=== PATIENT | male | born 1955 | race Caucasian/White ===

== ENCOUNTER 2024-07-10 03:29 | Inpatient (IN) | payer MEDICARE ==
[~2024-07-10] VITALS: Ht 185.4 cm; Wt 66.0 kg
[2024-07-10] VITALS (18 sets, daily range): BP systolic 126–168; BP diastolic 73–100
[2024-07-10] MEDS ORDERED: ALBU90OI INH (03:40)
[2024-07-10 03:54] LABS: BASOPHILS ABSOLUTE AUTO 0.02 K/mm3 (0.00-0.23); BASOPHILS PERCENT AUTO 0 % (0-2); EOSINOPHILS ABSOLUTE AUTO 0.01 K/mm3 (0.00-0.68); EOSINOPHILS PERCENT AUTO 0 % (0-6); Hematocrit 31.5 % (37.0-53.0); Hemoglobin 11.8 g/dL (13.5-17.5); IMMATURE GRAN ABSOLUTE AUTO 0.05 K/mm3 (0.00-0.10); IMMATURE GRAN PERCENT AUTO 1 % (0-1); LYMPHOCYTES ABSOLUTE AUTO 0.52 K/mm3 (0.84-5.20); LYMPHOCYTES PERCENT AUTO 8 % (21-46); MONOCYTES ABSOLUTE AUTO 0.73 K/mm3 (0.16-1.47); MONOCYTES PERCENT AUTO 11 % (4-13); Mean Corpuscular HGB 38.7 pg (26.0-34.0); Mean Corpuscular HGB Conc 37.5 g/dL (31.5-36.5); Mean Corpuscular Volume 103 fL (80-100); Mean Platelet Volume 9.6 fL (9.1-12.4); NEUTROPHILS PERCENT AUTO 80 % (41-73); Platelet Count 103 K/mm3 (150-400); RDW Coefficient Variation 12.7 % (11.7-14.2); RDW Standard Deviation 47.6 fL (35.1-46.3); Red Blood Cell Count 3.05 M/mm3 (4.30-5.90); White Blood Cell Count 6.73 K/mm3 (4.00-11.30)
[2024-07-10 04:00] LABS: Albumin, Blood 3.8 g/dL (3.4-5.0); Albumin/Globulin Ratio 1.2 (0.8-1.8); Bilirubin, Total 0.7 mg/dL (0.1-1.0); Bun/Creatinine Ratio 8.4 (12.0-20.0); Calcium, Blood 8.4 mg/dL (8.5-10.1); Creatinine, Blood 0.83 mg/dL (0.60-1.20); Globulin, Blood 3.3 g/dL (2.2-4.0); Potassium, Blood 3.4 mmol/L (3.5-5.5); Total Protein, Blood 7.1 g/dL (6.4-8.2)
[2024-07-10] MEDS ORDERED: FentaNYL Citrate 50 MCG/ML 2 ML Injection IV ONE ×2 (04:15→06:20)
[2024-07-10 04:26] LABS: Magnesium, Blood 1.5 mg/dL (1.6-2.4)
[2024-07-10 04:48] LABS: Thyroid Stimulating Hormone 1.6 uIU/mL (0.360-4.800)
[2024-07-10] MEDS ORDERED: Potassium Chloride 20 MEQ TabCR PO ONE (05:05)
[2024-07-10] MEDS ORDERED: Mag Sulfate 1 GM/D5% 100ML 100 ML IV ONE (05:05)
[2024-07-10] MEDS ORDERED: NS 1,000 ML IV SCH (05:35)
[2024-07-10] MEDS ORDERED: HYDROmorphone HCl/Pf 1MG SYR IV ONE (07:40)
[2024-07-10] MEDS ORDERED: Metoprolol Tartrate 25 MG Tab PO PRN (08:20)
[2024-07-10] MEDS ORDERED: TraMADol HCl 50 MG Tab PO PRN (08:20)
[2024-07-10] MEDS ORDERED: FLU VACC TS2024-25(6MOS UP)/PF 45 MCG/0.5 ML SYRINGE IM SCH (08:20)
[2024-07-10] MEDS ORDERED: NS KCl 20mEq 1,000 ML IV SCH (08:20)
[2024-07-10] MEDS ORDERED: CeFAZolin Sodium 2,000 MG in NS 100 ML IV SCH ×2 (08:20→17:30)
[2024-07-10] MEDS ORDERED: Tranexamic Acid 100 ML IV ONE ×2 (08:20→09:43)
[2024-07-10] MEDS ORDERED: FentaNYL Citrate 50 MCG/ML 2 ML Injection IV PRN (08:25)
[2024-07-10] MEDS ORDERED: Acetaminophen 325 MG TABLET PO PRN (08:25)
[2024-07-10] MEDS ORDERED: Docusate Sodium 100 MG Cap PO SCH (09:00)
[2024-07-10] MEDS ORDERED: Sennosides 8.6 MG Tab PO SCH (09:00)
[2024-07-10] MEDS ORDERED: Lactated Ringer's 1,000 ML IV ONE (09:01)
[2024-07-10] MEDS ORDERED: propofoL 20 ML IV ONE (09:12)
[2024-07-10] MEDS ORDERED: FentaNYL Citrate 50 MCG/ML 2 ML Injection ONE ×2 (09:13→10:07)
--- NOTE | 2024-07-10 09:13 | NUR ---
PT IN PACU FOR PRE-OP, DR PERSON HAS CONSULTED PT, DR CHATMAN HAS CONSULTED AND SIGNED CONSENT WITH PT
[2024-07-10] MEDS ORDERED: SuccINYLCHOLINE Chloride 100 MG/5 ML 5MLSYR ONE (09:15)
[2024-07-10] MEDS ORDERED: Lidocaine HCl 1% 30 ML SDV ONE (09:17)
[2024-07-10] MEDS ORDERED: Ondansetron HCl 2 MG / ML 2ML Vial ONE (09:42)
[2024-07-10] MEDS ORDERED: Dexamethasone Sod Phos 10 MG/ML 1ML VIAL ONE (09:42)
[2024-07-10] MEDS ORDERED: CeFAZolin Sodium 1000 mg Vial ONE (09:43)
[2024-07-10] MEDS ORDERED: ePHEDrine Sulfate 50 MG/ML 1ML Injection ONE (09:56)
[2024-07-10 12:06] LABS: Bun/Creatinine Ratio 7.7 (12.0-20.0); Calcium, Blood 7.9 mg/dL (8.5-10.1); Creatinine, Blood 0.78 mg/dL (0.60-1.20); Potassium, Blood 3.6 mmol/L (3.5-5.5)
[2024-07-10] MEDS ORDERED: Albuterol 2.5 MG/3 ML VIAL INH PRN (16:20)
--- NOTE | 2024-07-10 17:38 | NUR ---
PATIENT IS ALERT AND ORIENTED AND COOPERATIVE WITH CARE. ON RA. TELEMETRY IN PLACE WITH A RATE AND RHYTHM OF ST 110 BPM. PATIENT HAS NOT BEEN OOB TODAY. PAIN MANAGED PER EMAR. TOLERATING HIS DIET. REPORTS NO HOME MEDS OR PCP. AQUACEL ON LEFT HIP IS CDI, SOME BRUISING IS PEEKING THROUGH THE BOTTOM OF THE AQUACEL. SCATTERED BRUISING. ABRASION ON LEFT ELBOW AND LEFT KNEE FROM FALL AT HOME. WILL CONTINUE TO MONITOR.
--- NOTE | 2024-07-11 04:29 | NUR ---
SHIFT SUMMARY POD 1 LEFT HIP PINNING. AQUACEL CDI. PAIN MANAGED PER EMAR AND ICE THERAPY. BRUNO PO INTAKE. IVF/ABX INFUSED PER ORDERS. IS VOIDING IND IN URINAL. PT DECLINED POST- OP AMBULATION, PLAN TO WORK WITH THERAPY TODAY. WILL GIVE REPORT TO ONCOMING RN.
[2024-07-11 04:57] LABS: Hematocrit 23.8 % (37.0-53.0); Hemoglobin 8.6 g/dL (13.5-17.5); Mean Corpuscular HGB 38.7 pg (26.0-34.0); Mean Corpuscular HGB Conc 36.1 g/dL (31.5-36.5); Mean Corpuscular Volume 107 fL (80-100); Mean Platelet Volume 10.1 fL (9.1-12.4); Platelet Count 84 K/mm3 (150-400); RDW Standard Deviation 51.2 fL (35.1-46.3); Red Blood Cell Count 2.22 M/mm3 (4.30-5.90); White Blood Cell Count 7.44 K/mm3 (4.00-11.30)
[2024-07-11 05:15] LABS: Bun/Creatinine Ratio 12.9 (12.0-20.0); Calcium, Blood 7.5 mg/dL (8.5-10.1); Creatinine, Blood 0.7 mg/dL (0.60-1.20); Potassium, Blood 4.2 mmol/L (3.5-5.5)
[2024-07-11 07:13] VITALS: BP 121/95
[2024-07-11] MEDS ORDERED: Aspirin 81 MG Chew PO SCH (09:00)
[2024-07-11] MEDS ORDERED: Enoxaparin 40 MG/0.4 ML SYR SC SCH (09:00)
[2024-07-11 12:53] VITALS: BP 138/81
[2024-07-11] MEDS ORDERED: HYDROcodone 5-APAP 325 TAB PO PRN (13:10)
[2024-07-11 14:55] VITALS: BP 136/63
[2024-07-11 19:12] VITALS: BP 143/66
--- NOTE | 2024-07-11 19:38 | NUR ---
SHIFT SUMMARY PT IS A/OX4, 1 ASST W/ FWW AND GB, HAS AMBULATED TO BR AND VOIDED MULTIPLE TIMES TODAY. PAIN IS MANAGABLE W/ PAIN MEDS PER EMAR. TOLERATING REG DIET AND FLUIDS, SALINE LOCKED. VSS. PT RECOMMENDING SNF BUT PT IS OPTING TO D/C HOME, PT CONSULTED W/ CARE MANAGEMENT TODAY FOR D/C PLANNING. PT RESTING IN ROOM W/ CALL LIGHT IN REACH, REPORT TO DENISE NAJERA.
[2024-07-11 23:26] VITALS: BP 148/78
[2024-07-12] VITALS (16 sets, daily range): BP systolic 107–138; BP diastolic 55–91
[2024-07-12 04:32] LABS: Hematocrit 21.8 % (37.0-53.0); Hemoglobin 7.8 g/dL (13.5-17.5); Mean Corpuscular HGB 38.4 pg (26.0-34.0); Mean Corpuscular HGB Conc 35.8 g/dL (31.5-36.5); Mean Corpuscular Volume 107 fL (80-100); Mean Platelet Volume 10.3 fL (9.1-12.4); Platelet Count 79 K/mm3 (150-400); RDW Coefficient Variation 12.9 % (11.7-14.2); RDW Standard Deviation 50.7 fL (35.1-46.3); Red Blood Cell Count 2.03 M/mm3 (4.30-5.90); White Blood Cell Count 4.89 K/mm3 (4.00-11.30)
[2024-07-12 05:03] LABS: Bun/Creatinine Ratio 9.5 (12.0-20.0); Calcium, Blood 7.5 mg/dL (8.5-10.1); Creatinine, Blood 0.74 mg/dL (0.60-1.20); Potassium, Blood 3.8 mmol/L (3.5-5.5)
--- NOTE | 2024-07-12 05:19 | NUR ---
SHIFT SUMMARY POD 2 LEFT HIP PINNING. AQUACEL TO LEFT HIP CDI. ICE THERAPY APPLIED BRUNO. PAIN MANAGED PER EMAR AND REPOSITIONING. BRUNO PO INTAKE, DENIES N/V. IV REPLACED. PER BINDING MACHINE OPERATOR, HR SR AT 83 WITH PAC'S. PT PLEASANT AND COOPERATIVE WITH CARE. PLAN TO WORK WITH THERAPY AND POSSIBLE D/C WHEN ABLE WITH H/H. WILL GIVE REPORT TO ONCOMING RN
--- NOTE | 2024-07-12 11:45 | NUR ---
UPDATE PT IS TACHYCARDIC UP TO 150'S WHILE AMBULATING, HR RETURNS TO SINUS/SINUS TACH 90-110 AT REST. PT DENIES CHEST PAIN/SOB. DR. LANDA NOTIFIED W/ NO ORDERS RECIEVED.
--- NOTE | 2024-07-12 14:50 | NUR ---
CHANGE IN STATUS PT IS HAVING SUDDEN EXCRUTIATING PAIN TO L HIP. INCREASE IN SWELLING NOTED TO L HIP/THIGH, PT REPORTS INCREASE IN PAIN WHEN PRESSURE IS APPLIED TO LEG. CAP REFILL TO L FOOT 3 SECS, PT ABLE TO WIGGLE TOES. NOTIFIED DR. LANDA, ORDER TO GIVE SECOND TAB OF NORCO NOW AND CONTACT ORTHO. ICE APPLIED TO L HIP W/ NO RELIEF. DR. LEARY CONTACTED AT 1500, ORDER FOR STAT XR RECIEVED.
--- NOTE | 2024-07-12 15:43 | NUR ---
1524 - DR. LEARY CONSULTED AGAIN PT HAS NOT REPORTED ANY RELIEF IN PAIN. ORDER FOR STAT H&H RECIEVED. VSS.
[2024-07-12 15:52] LABS: Hematocrit 22.4 % (37.0-53.0); Hemoglobin 8.1 g/dL (13.5-17.5)
[2024-07-12] MEDS ORDERED: HYDROmorphone HCl/Pf 1MG SYR IV ONE (16:10)
[2024-07-12] MEDS ORDERED: FentaNYL Citrate 50 MCG/ML 2 ML Injection ONE (18:48)
[2024-07-12] MEDS ORDERED: propofoL 20 ML IV ONE (18:48)
[2024-07-12] MEDS ORDERED: Lidocaine HCl 2% 20 ML MDV ONE (18:49)
[2024-07-12] MEDS ORDERED: Rocuronium Bromide 10 MG/ML 5ML Injection IV ONE (18:51)
--- NOTE | 2024-07-12 19:12 | NUR ---
update PT TO SURGERY WITH ANESTHESIOLOGIST AND OFFICE MACHINE SERVICER APPRENTICE AT THIS TIME.
[2024-07-12] MEDS ORDERED: Ondansetron HCl 2 MG / ML 2ML Vial IV PRN (19:25)
[2024-07-12] MEDS ORDERED: Albuterol 2.5 MG/3 ML VIAL INH PRN (19:25)
[2024-07-12] MEDS ORDERED: Labetalol HCL 5 MG/ML 4ML Injection (Single Dose) IV PRN (19:25)
[2024-07-12] MEDS ORDERED: HYDROmorphone HCl/Pf 1MG SYR IV PRN ×2 (19:25)
[2024-07-12] MEDS ORDERED: FentaNYL Citrate 50 MCG/ML 2 ML Injection IV PRN ×2 (19:25→19:30)
--- NOTE | 2024-07-12 19:25 | NUR ---
SHIFT SUMMARY SEE PREVIOUS NOTES. PT WAS REPORTING A DECREASE IN PAIN AFTER ANGIOGRAM, PAIN NOW /. PT NPO PER DR. LEARY, ONLY TOOK PAIN MEDS W/ SMALL SIP OF WATER. SWELLING PRESENT TO L THIGH AREA FROM KNEE TO GROIN. CAP REFILL 3 SECS IN L TOES, PT ABLE TO WIGGLE TOES BUT REPORTS PAIN W/ ANY MOVEMENT. DR. LEARY RETURNED TO BEDSIDE AFTER ANGIOGRAM AND TOOK PT TO OR FOR SURGERY SHORTLY AFTER FOR BLEEDING IN L THIGH. REPORT TO CANDACE NAJERA.
[2024-07-12] MEDS ORDERED: Phenylephrine HCl 100 MCG/ML-NS 10MLSYR (1MG/10ML) ONE (19:33)
[2024-07-12] MEDS ORDERED: Sugammadex Sodium 200 MG/2ML SDV (100 MG/ML) ONE (20:12)
[2024-07-13] VITALS (17 sets, daily range): BP systolic 113–148; BP diastolic 59–88
[2024-07-13] MEDS ORDERED: CeFAZolin Sodium 1,000 MG in NS 50 ML IV SCH (04:00)
--- NOTE | 2024-07-13 05:15 | NUR ---
PROVIDER NOTIFIED HOSPITALIST NOTIFIED MORNING LABS NOT ORDERED. NEW LAB ORDERS OBTAINED FOR AM.
[2024-07-13 05:41] LABS: BASOPHILS PERCENT AUTO 0 % (0-2); EOSINOPHILS PERCENT AUTO 0 % (0-6); Hemoglobin 6.3 g/dL (13.5-17.5); IMMATURE GRAN ABSOLUTE AUTO 0.01 K/mm3 (0.00-0.10); IMMATURE GRAN PERCENT AUTO 0 % (0-1); LYMPHOCYTES ABSOLUTE AUTO 0.27 K/mm3 (0.84-5.20); LYMPHOCYTES PERCENT AUTO 9 % (21-46); MONOCYTES ABSOLUTE AUTO 0.27 K/mm3 (0.16-1.47); MONOCYTES PERCENT AUTO 9 % (4-13); Mean Corpuscular HGB 39.1 pg (26.0-34.0); Mean Corpuscular HGB Conc 36.2 g/dL (31.5-36.5); Mean Corpuscular Volume 108 fL (80-100); Mean Platelet Volume 10.4 fL (9.1-12.4); NEUTROPHILS ABSOLUTE AUTO 2.53 K/mm3 (1.96-9.15); NEUTROPHILS PERCENT AUTO 82 % (41-73); Platelet Count 88 K/mm3 (150-400); RDW Standard Deviation 50.8 fL (35.1-46.3); Red Blood Cell Count 1.61 M/mm3 (4.30-5.90); White Blood Cell Count 3.08 K/mm3 (4.00-11.30)
[2024-07-13 05:47] LABS: Hematocrit 17.4 % (37.0-53.0)
[2024-07-13 05:58] LABS: Bun/Creatinine Ratio 7.8 (12.0-20.0); Calcium, Blood 7.6 mg/dL (8.5-10.1); Creatinine, Blood 0.77 mg/dL (0.60-1.20)
--- NOTE | 2024-07-13 06:05 | NUR ---
CRITICAL LAB VALUE LAB NOTIFIED THIS RN OF CRITICAL HCT VALUE OF 17.4. RN THEN NOTIFIED HOSPITALIST OF H/H AT 6.3/17.4. ORDER FOR ONE UNIT OF PRBC'S OBTAINED AT THIS TIME. WILL ADMINISTER ORDERED. PAPER WOOD CUTTER AWARE.
--- NOTE | 2024-07-13 06:18 | NUR ---
PATIENT TO OR AT CHANGE OF SHIFT FOR I&D OF HEMATOMA LT HIP. FROM PACU BACK TO HIS ROOM 212 AT 2115. AWAKE A&OX4. TALKING. DENIES PAIN T/O NOC WHEN ASKED SEVERAL TIMES. WOUND VAC TO LT HIP WITH TEGADERM AND LARGE MANPREET WRAP NOTED TO LLE. WOUND VAC WITH MARCIAL RED DRAINAGE APPROX 180 THIS SHIFT. SCHEDULED MEDS GIVEN ORDERED PER EMAR. PT TO BE NON-WEIGHT BEARING LLE TODAY 07/13/24. USES URINAL INDEPENDENTLY WITH ADEQUATE URINE OUTPUT. TELE IN PLACE SINUS TACH RATE 106 PER PCU TECH. WILL GIVE REPORT TO ONCOMING RN TAKING PT.
[2024-07-13] MEDS ORDERED: NS 250 ML IV PRN (07:55)
--- NOTE | 2024-07-13 19:15 | NUR ---
SHIFT SUMMARY AOX4, WOUND VAC IN PLACE COMPRESSED AND INTACT, DRNG MARCIAL RED BLOOD, ABOUT 200ML OUTPUT THIS SHIFT. 2 UNITS PRBC TRANSFUSED TODAY. VITALS STABLE. PATIENT IS 1 ASSIST TO BSC. WORKS WITH PT ON TRANSFERS.DENIES N/T, DENIES PAIN MEDICATION NEEDS. TOLERATING PO INTAKE AND HAVING LOOSE STOOLS TODAY. REPORT TO MEDICAL INFORMATION SPECIALIST RN CALL LIGHT IN REACH.
[2024-07-13 19:32] LABS: Hematocrit 26.1 % (37.0-53.0); Hemoglobin 9.5 g/dL (13.5-17.5)
[2024-07-13 19:48] LABS: International Normalized Ratio 1.2; Prothrombin Time Results 12.7 Sec (9.7-11.5)
--- NOTE | 2024-07-13 20:02 | NUR ---
LABS: PT REPEAT CBC REVIEWED W/HOSPITALIST. CLARIFIED CURRENT ORDER FOR PLATELETS, PER HOSPITALIST LILIA ROBERTS NOT GIVE PLATELETS. PRIMARY RN UPDATED.
[2024-07-14] VITALS (10 sets, daily range): BP systolic 123–153; BP diastolic 68–87
[2024-07-14 05:13] LABS: BASOPHILS ABSOLUTE AUTO 0.01 K/mm3 (0.00-0.23); BASOPHILS PERCENT AUTO 0 % (0-2); EOSINOPHILS ABSOLUTE AUTO 0.05 K/mm3 (0.00-0.68); EOSINOPHILS PERCENT AUTO 1 % (0-6); Hematocrit 23.7 % (37.0-53.0); Hemoglobin 8.6 g/dL (13.5-17.5); IMMATURE GRAN ABSOLUTE AUTO 0.02 K/mm3 (0.00-0.10); IMMATURE GRAN PERCENT AUTO 0 % (0-1); LYMPHOCYTES ABSOLUTE AUTO 1.33 K/mm3 (0.84-5.20); LYMPHOCYTES PERCENT AUTO 27 % (21-46); MONOCYTES ABSOLUTE AUTO 0.81 K/mm3 (0.16-1.47); MONOCYTES PERCENT AUTO 17 % (4-13); Mean Corpuscular HGB 35.8 pg (26.0-34.0); Mean Corpuscular HGB Conc 36.3 g/dL (31.5-36.5); Mean Platelet Volume 10.2 fL (9.1-12.4); NEUTROPHILS ABSOLUTE AUTO 2.66 K/mm3 (1.96-9.15); NEUTROPHILS PERCENT AUTO 55 % (41-73); Platelet Count 96 K/mm3 (150-400); RDW Coefficient Variation 18.3 % (11.7-14.2); RDW Standard Deviation 65.2 fL (35.1-46.3); White Blood Cell Count 4.88 K/mm3 (4.00-11.30)
[2024-07-14 05:22] LABS: Mean Corpuscular Volume 99 fL (80-100)
[2024-07-14 05:29] LABS: Bun/Creatinine Ratio 7.4 (12.0-20.0); Calcium, Blood 7.4 mg/dL (8.5-10.1); Creatinine, Blood 0.82 mg/dL (0.60-1.20); Potassium, Blood 3.7 mmol/L (3.5-5.5)
--- NOTE | 2024-07-14 06:28 | NUR ---
SHIFT SUMMARY ALERT AND ORIENTED X4. PATIENT GOT 2 UNITS PRBC TODAY PER REPORT. PATIENT MEDICATED FOR C/O PAIN LT HIP AND LOWER BACK PRN PER EMAR. CIRC CHECKS WNL, PPP, WIGGLES TOES. WORKED WITH PT TODAY. NPO POST MN PER ORDER. MAY HAVE TO TAKE PATIENT BACK TO OR. LT HIP WITH WOUND VAC OVER INCISION. MARCIAL RED DRAINAGE NOTED IN CANISTER. OUT PUT WAS APPROX 475 ML AT START OF SHIFT AND NOW APROX 575 ML. SCHEDULED MEDS GIVEN ORDERED PER EMAR. CALL LIGHT IN REACH AND BED IN LOWEST POSITION. REPOSITIONED PATIENT T/O NOC FOR COMFORT. WILL GIVE REPORT TO ONCOMING RN TAKING PATIENT.
--- NOTE | 2024-07-14 13:40 | NUR ---
MORNING SUMMARY THE PT IS A&OX4, WEIGHT BEARING TOLERATED, AND HE IS ABLE TO MAKE HIS NEEDS KNOWN. HE IS POD 2 POST LEFT FEM REPAIR AND I&D. THE PT HAS A WOUND VAC INTACT AND SS FLUID DRAINING INTO WOUND VAC. THE CANNISTER WAS CHANGED AT SHIFT CHANGE THIS MRONING WITH JULIEN NAJERA. THE PT HAS BEEN ON TELE AND HAS BEEN RUNNING SR W/ PVC'S. BP STABLE. HE DENIES ANY ANGINA OR CHEST PRESSURE. HE IS ON RA W/ SP02 >93% AND DENIES ANY SOB. PT'S PLTS HAVE BEEN LOW AND ORTHO WANTS PLT'S TO BE GIVEN TODAY THEN FOR THE PT TO BE NPO @ 0000 FOR I&D/PROCEDURE 07/15. PT AWARE OF THE PLAN OF CARE. PAIN HAS BEEN MANAGED WITH ORAL PAIN MEDICATIONS. NO ACUTE EVENTS THIS MORNING. CARE WAS HANDED OFF TO DEMARCO NAJERA.
--- NOTE | 2024-07-14 13:40 | NUR ---
ASSUMED CARE OF PT FROM SHERIN NAJERA. PT RESTING IN BED AT THIS TIME, DENIES NEEDS. CALL LIGHT IN REACH.
--- NOTE | 2024-07-14 15:39 | NUR ---
1535 - PT HAD 5 BEATS OF V TACH PER HAND INSPECTOR. HE DENIES CHEST PAIN/PRESSURE, ASYMPTOMATIC, IS NOW SINUS RHYTHM IN THE S. NOTIFIED DR. DISLA, NO ORDERS RECIEVED.
[2024-07-14] MEDS ORDERED: Carvedilol 3.125 MG Tab PO SCH (17:00)
--- NOTE | 2024-07-14 17:06 | NUR ---
SHIFT SUMMARY PT IS POD1 FOR WOUND VAC PLACEMENT, NPO @ 0000 FOR POSSIBLE INCISION CLOSURE TOMORROW. WOUND VAC MAINTAINING SUCTION, SANGUINEOUS DRAINAGE. CAP REFILL 2 SECS IN L TOES, PT ABLE TO WIGGLE TOES. SOME SWELLING PRESENT TO L THIGH. PT REPORTS PAIN IS TOLERABLE. RECIEVED 1 UNIT PLATELETS SINCE ASSUMPTION OF CARE. VSS. PT IS CURRENTLY SINUS TACH @ 106, NO FURTHER EVENTS SINCE LAST NOTE. PT RESTING PEACEFULLY W/ CALL LIGHT IN REACH.
--- NOTE | 2024-07-14 19:19 | NUR ---
1829 - TELE REPORTED 5 SECONDS OF SVT UP TO HR OF 169. PT ASYMPTOMATIC. NOTIFIED DR. DISLA, NO ORDERS RECIEVED.
[2024-07-15] VITALS (19 sets, daily range): BP systolic 131–177; BP diastolic 68–98
--- NOTE | 2024-07-15 05:18 | NUR ---
SHIFT SUMMARY DURAN WAS ALERT AND FULLY ORIENTED ON ASSESSMENT. PT PAIN WELL MANAGED T/O SHIFT. WOUND VAC DRAINING MODERATE SANG. DRESSING C/D/I. SENSATION AND CIRCULATION TO LEFT FOOT INTACT, PT KEPT NPO FROM MIDNIGHT FOR POSSIBLE WOUND CLOSURE IN AM. VSS, NO ACUTE EVENTS, NO NOTED CHANGES TO PT CONDITION.
[2024-07-15] MEDS ORDERED: CeFAZolin Sodium 2,000 MG in NS 100 ML IV SCH ×2 (06:00→22:00)
[2024-07-15] MEDS ORDERED: Vancomycin HCL 1,000 MG in NS 250 ML IV SCH (06:00)
[2024-07-15] MEDS ORDERED: Tranexamic Acid 100 ML IV SCH (06:00)
[2024-07-15 06:32] LABS: Hematocrit 24.2 % (37.0-53.0); Hemoglobin 8.8 g/dL (13.5-17.5); Mean Corpuscular HGB 36.1 pg (26.0-34.0); Mean Corpuscular HGB Conc 36.4 g/dL (31.5-36.5); Mean Corpuscular Volume 99 fL (80-100); Mean Platelet Volume 9.6 fL (9.1-12.4); Platelet Count 108 K/mm3 (150-400); RDW Coefficient Variation 18.2 % (11.7-14.2); RDW Standard Deviation 66.6 fL (35.1-46.3); Red Blood Cell Count 2.44 M/mm3 (4.30-5.90); White Blood Cell Count 3.81 K/mm3 (4.00-11.30)
[2024-07-15 06:49] LABS: Magnesium, Blood 1.5 mg/dL (1.6-2.4)
[2024-07-15 06:50] LABS: Albumin, Blood 2.4 g/dL (3.4-5.0); Anion Gap 11 mmol/L (3-11); Blood Urea Nitrogen 8 mg/dL (8-24); Bun/Creatinine Ratio 11.3 (12.0-20.0); CO2, Blood 25 mmol/L (21-32); Calcium, Blood 7.6 mg/dL (8.5-10.1); Chloride, Blood 99 mmol/L (98-108); Creatinine, Blood 0.71 mg/dL (0.60-1.20); Glomerular Filtration Rate 99 (60-); Glucose, Blood 92 mg/dL (70-99); Phosphorus, Blood 2.4 mg/dL (2.5-4.9); Potassium, Blood 3.5 mmol/L (3.5-5.5); Sodium, Blood 131 mmol/L (136-145)
[2024-07-15] MEDS ORDERED: Magnesium Sulf 2 GM/Water 50ML 50 ML IV ONE (08:35)
[2024-07-15] MEDS ORDERED: Lactated Ringer's 1,000 ML IV SCH (12:05)
--- NOTE | 2024-07-15 12:31 | NUR ---
PATIENT TO DAYSURGERY @1200
[2024-07-15] MEDS ORDERED: Ipratropium/Albuterol SulF 2.5-0.5MG/3 ML Amp ONE (12:32)
[2024-07-15] MEDS ORDERED: propofoL 20 ML IV ONE (13:04)
[2024-07-15] MEDS ORDERED: FentaNYL Citrate 50 MCG/ML 2 ML Injection ONE ×3 (13:04→14:26)
[2024-07-15] MEDS ORDERED: Ipratropium/Albuterol SulF 2.5-0.5MG/3 ML Amp INH ONE (13:05)
[2024-07-15] MEDS ORDERED: Sugammadex Sodium 200 MG/2ML SDV (100 MG/ML) ONE (13:53)
[2024-07-15] MEDS ORDERED: Vancomycin HCl 1000 MG ADDvantage ONE (14:06)
[2024-07-15] MEDS ORDERED: Labetalol HCL 5 MG/ML 4ML Injection (Single Dose) IV PRN (14:35)
[2024-07-15] MEDS ORDERED: FentaNYL Citrate 50 MCG/ML 2 ML Injection IV PRN ×2 (14:35)
[2024-07-15] MEDS ORDERED: Ondansetron HCl 2 MG / ML 2ML Vial IV PRN ×2 (14:35→15:25)
[2024-07-15] MEDS ORDERED: HYDROmorphone HCl/Pf 1MG SYR IV PRN ×3 (14:35→15:30)
--- NOTE | 2024-07-15 14:39 | NUR ---
07/15/24 1439 Prabha Pollock NOTED: MULTIPLE ECCHYMOSIS TO PT LEFT HIP, LEFT FLANK AND LEFT ARM
[2024-07-15] MEDS ORDERED: HYDROmorphone HCl/Pf 1MG SYR ONE (15:07)
[2024-07-15] MEDS ORDERED: Bisacodyl 10 MG Supp PR PRN (15:20)
[2024-07-15] MEDS ORDERED: FLU VACC TS2024-25(6MOS UP)/PF 45 MCG/0.5 ML SYRINGE IM SCH (15:20)
[2024-07-15] MEDS ORDERED: HYDROcodone 5-APAP 325 TAB PO PRN (15:20)
[2024-07-15] MEDS ORDERED: Acetaminophen 325 MG TABLET PO PRN (15:25)
[2024-07-15] MEDS ORDERED: Ondansetron 4 MG TAB PO PRN (15:25)
[2024-07-15] MEDS ORDERED: Metoclopramide HCl 10 MG Tab PO PRN (15:25)
[2024-07-15] MEDS ORDERED: Naloxone HCl 0.4MG / ML 1ML Vial IV PRN (15:25)
[2024-07-15] MEDS ORDERED: Magnesium Hydroxide Conc 10 ML UDC PO PRN (15:30)
--- NOTE | 2024-07-15 16:07 | NUR ---
POST-OP PATIENT TO THE ROOM @1545, DRESSING IS BULKY DRESSING WITH PRESSURE TAPE, AND MANPREET WRAP AROUND THE HIP AND DOWN THE LLE. CAP REFILL IS 3 SECONDS. DENIES N/T AND IS ABLE TO WIGGLE ALL TOES. DENIES PAIN, N/V. TELE IN PLACE, VOIDING, CALL LIGHT IN REACH.
[2024-07-15] MEDS ORDERED: NS KCl 20mEq 1,000 ML IV SCH (17:00)
--- NOTE | 2024-07-15 17:48 | NUR ---
SHIFT SUMMARY POD#0 I&D OF LEFT HIP WITH WOUND VAC TAKEDOWN. BULKY DRESSING WITH PRESSURE TAPE AND MANPREET WRAP TO THIGH AND HIP, C/D/I. TTWB TO LLE. PATIENT TO HAVE PT/OT EVAL TOMORROW. DENIES PAIN AT THIS TIME, CAP REFILL LESS THAN 3 SECONDS, DENIES N/T. TOLERATING PO INTAKE. TELE IN PLACE. VOIDING INDEP WITH URINAL. CALL LIGHT IN REACH.
[2024-07-15] MEDS ORDERED: Docusate Sodium 100 MG Cap PO SCH (21:00)
[2024-07-16] MEDS ORDERED: Vancomycin HCL 1,000 MG in NS 250 ML IV SCH (01:00)
--- NOTE | 2024-07-16 04:28 | NUR ---
SHIFT SUMMARY DURAN HAD HIS INSCISION TO LEFT HIP CLOSED ON DAY SHIFT. PT PAIN WELL MANAGED AT THIS TIME. CIRCULATION AND SENSATION TO DISTAL EXTS INTACT. POST OP DRESSING C/D/I. PT TOE TOUCH WB TO LLE. NO ACUTE EVENTS, NO OTHER CHANGES TO CONDITION NOTED.
[2024-07-16 05:29] VITALS: BP 158/89
[2024-07-16 06:08] LABS: BASOPHILS PERCENT AUTO 0 % (0-2); EOSINOPHILS ABSOLUTE AUTO 0.01 K/mm3 (0.00-0.68); EOSINOPHILS PERCENT AUTO 0 % (0-6); Hematocrit 24.6 % (37.0-53.0); Hemoglobin 8.8 g/dL (13.5-17.5); IMMATURE GRAN ABSOLUTE AUTO 0.03 K/mm3 (0.00-0.10); IMMATURE GRAN PERCENT AUTO 1 % (0-1); LYMPHOCYTES PERCENT AUTO 12 % (21-46); MONOCYTES ABSOLUTE AUTO 0.75 K/mm3 (0.16-1.47); MONOCYTES PERCENT AUTO 15 % (4-13); Mean Corpuscular HGB 36.2 pg (26.0-34.0); Mean Corpuscular HGB Conc 35.8 g/dL (31.5-36.5); Mean Corpuscular Volume 101 fL (80-100); Mean Platelet Volume 9.6 fL (9.1-12.4); NEUTROPHILS PERCENT AUTO 73 % (41-73); Platelet Count 126 K/mm3 (150-400); RDW Coefficient Variation 17.6 % (11.7-14.2); RDW Standard Deviation 65.6 fL (35.1-46.3); Red Blood Cell Count 2.43 M/mm3 (4.30-5.90); White Blood Cell Count 5.09 K/mm3 (4.00-11.30)
[2024-07-16 06:32] LABS: C-REACTIVE PROTEIN, EXT RANGE 0.306 mg/dL (0.000-0.300); Magnesium, Blood 1.9 mg/dL (1.6-2.4)
[2024-07-16 06:34] LABS: Albumin, Blood 2.5 g/dL (3.4-5.0); Anion Gap 11 mmol/L (3-11); Blood Urea Nitrogen 8 mg/dL (8-24); Bun/Creatinine Ratio 11.7 (12.0-20.0); CO2, Blood 26 mmol/L (21-32); Calcium, Blood 7.8 mg/dL (8.5-10.1); Chloride, Blood 95 mmol/L (98-108); Creatinine, Blood 0.68 mg/dL (0.60-1.20); Glomerular Filtration Rate 101 (60-); Glucose, Blood 117 mg/dL (70-99); Phosphorus, Blood 3.3 mg/dL (2.5-4.9); Potassium, Blood 3.7 mmol/L (3.5-5.5); Sodium, Blood 128 mmol/L (136-145)
[2024-07-16 07:16] VITALS: BP 165/87
[2024-07-16 08:51] VITALS: BP 148/80
[2024-07-16 15:57] VITALS: BP 147/68
--- NOTE | 2024-07-16 16:00 | NUR ---
ASSUMED CARE OF PATIENT AT THIS TIME.
--- NOTE | 2024-07-16 16:08 | NUR ---
SUMMARY/TRANSFER OF CARE PT IS A/OX4, 1 ASST TTWB FWW AND GB TO [facility]. TELE IN PLACE, SINUS RHYTHM, NO EVENTS REPORTED THIS SHIFT. VSS. PAIN TOLERABLE W/ PAIN MEDS PER EMAR. MILD SWELLING TO L HIP, CAP REFILL IN L TOES 2 SECS, PT ABLE TO WIGGLE TOES ON COMMAND. TOLERATING REG DIET, VOIDING. CALL LIGHT IN REACH.
--- NOTE | 2024-07-16 17:53 | NUR ---
PT HAS BEEN STABLE SINCE THIS RN ASSUMED CARE AT 1600. PT HAS BEEN OOB WITH ONE ASSIST. ABLE TO MAINTAIN TTWB. CELIA DRESSING IN PLACE AND CDI. PT HAS HAD SOME DIFFICULTY MAINTAINING IV ACCESS. ABX ADJUSTED APPROPRIATE. PT VOIDING WELL AND TOLERATING DIET. PLAN FOR SNF AT DISCHARGE.
[2024-07-16 19:21] VITALS: BP 154/75
[2024-07-16 23:26] VITALS: BP 152/92
[2024-07-17 04:23] VITALS: BP 143/81
--- NOTE | 2024-07-17 06:09 | NUR ---
SHIFT SUMMARY NO ACUTE CHANGES TO REPORT OVERNIGHT. PT HAS RESTED T/O THE SHIFT. PAIN MANAGED PER EMAR. SURGICAL SITE WNL, DRESSING C/D/I. 1 PA TO THE BSC. VITALS STABLE. PLAN OF CARE REMAINS UNCHANGED. BED IN LOWEST POSITION, CALL LIGHT WITHIN REACH.
[2024-07-17 07:11] VITALS: BP 142/82
[2024-07-17] MEDS ORDERED: Trimethoprim/Sulfamethoxazole DS Tab PO SCH (09:00)
[2024-07-17] MEDS ORDERED: OxyCODONE HCL 5 MG TAB PO PRN (10:40)
[2024-07-17 12:11] VITALS: BP 147/77
[2024-07-17 14:45] VITALS: BP 118/68
[2024-07-17] MEDS ORDERED: Acetaminophen 500 MG Tab PO SCH (16:00)
--- NOTE | 2024-07-17 18:13 | NUR ---
PATIENT IS ALERT AND ORIENTED AND COOPERATIVE WITH CARE. C/O RLE PAIN THIS MONRING, MEDICATED PER EMAR, REPOSTIONED WITH PILLOWS AND ICE PLACED ON LEG. DR. WASHINGTON CLEANSED THE INSICION AND CHANGED THE DRESSING TODAY. HE PLACED AN AQUACEL OVER THE WOUND. THERE IS A LITTLE SWELLING NOTED ABOVE THE INSICION AND BRUISING BELOW. THERE WAS LITLLE DRAINAGE NOTED ON OLD DRESSING. FOLLOWING THE DRESSING CHANGE, THE PATIENT REPORTS LESS PAIN. UP TO THE CHAIR THIS AFTERNOON. BEDBATH THIS AFTERNOON. USES THE URINAL INDEPENDENTLY. ON RA. VSS. WILL CONTINUE TO MONITOR
[2024-07-18 03:46] VITALS: BP 131/67
[2024-07-18 04:34] LABS: Hematocrit 26.8 % (37.0-53.0); Hemoglobin 9.3 g/dL (13.5-17.5); Mean Corpuscular HGB 35.6 pg (26.0-34.0); Mean Corpuscular HGB Conc 34.7 g/dL (31.5-36.5); Mean Corpuscular Volume 103 fL (80-100); Mean Platelet Volume 9.4 fL (9.1-12.4); Platelet Count 129 K/mm3 (150-400); RDW Coefficient Variation 17.6 % (11.7-14.2); RDW Standard Deviation 66.5 fL (35.1-46.3); Red Blood Cell Count 2.61 M/mm3 (4.30-5.90); White Blood Cell Count 3.73 K/mm3 (4.00-11.30)
[2024-07-18 04:53] LABS: Albumin, Blood 2.4 g/dL (3.4-5.0); Anion Gap 8 mmol/L (3-11); Blood Urea Nitrogen 9 mg/dL (8-24); CO2, Blood 29 mmol/L (21-32); Calcium, Blood 7.8 mg/dL (8.5-10.1); Chloride, Blood 98 mmol/L (98-108); Creatinine, Blood 0.82 mg/dL (0.60-1.20); Glomerular Filtration Rate 95 (60-); Glucose, Blood 105 mg/dL (70-99); Magnesium, Blood 1.7 mg/dL (1.6-2.4); Phosphorus, Blood 3.2 mg/dL (2.5-4.9); Potassium, Blood 3.5 mmol/L (3.5-5.5); Sodium, Blood 131 mmol/L (136-145)
--- NOTE | 2024-07-18 04:59 | NUR ---
SHIFT SUMMARY POD8 L HIP PINNING, POD6 I&D W/ WOUND VAC, POD3 D/C WOUND VAC. DRESSING ON L HIP REMAINS C/D/I, SIGNIFIGANT BRUISING NOTED ON L SIDE/FLANK. SENSATIN AND CIRCULATION REMAINS INTACT IN RLE. VSS. PT SLEPT ON AND OFF T/O THE NIGHT. PT MEDICATED FOR PAIN W/TYLENOL W/ GOOD RESULTS. PT OOB TO THE BSC X2 FOR BM'S, UTILIZING URINAL INDEP. TOLLERATING PO W/O N/V. OVERALL, NO ACUTE EVENTS NOTED. PLAN TO AWAIT MEDICAL CLEARANCE FOR SNF D/C. THE PATIENT IS CURRENTLY SLEEPING, IN NO DISTRESS, CALL LIGHT IN REACH
[2024-07-18 07:30] VITALS: BP 144/64
[2024-07-18] MEDS ORDERED: OXYC5 PO (11:57)
[2024-07-18] MEDS ORDERED: CARV3.125 PO (11:57)
[2024-07-18] MEDS ORDERED: SULTRIDS PO (11:57)
--- NOTE | 2024-07-18 13:41 | NUR ---
ATTEMTPED TO CALL REPORT TO [facility], MESSAGE LEFT ON VOICEMAIL.
--- NOTE | 2024-07-18 14:29 | NUR ---
DISCHARGE PATIENT LEAVES VIA MEDICAL TRANSPORT TO [facility]. IV TAKEN OUT INTACT ALL BELONGINGS AND DISCHARGE PACKET WITH SENIOR PASTOR. ATTEMPTED TO CALL REPORT @9370 AND AGAIN @1430.
== END 2024-07-18 14:10 | DRG 481 ==
LOC: ER 03:29 → SURS 08:17
PROVIDERS: Internal Medicine; Orthopaedic Surgery; Student in an Organized Health Care Education/Training Program; ADMIT Internal Medicine
PROC: 0QS734Z Reposition Left Upper Femur with Internal Fixation Device, Percutaneous Approach (ICD-10-PCS; principal; 2024-07-10 08:00)
PROC: 0Y380ZZ Control Bleeding in Left Femoral Region, Open Approach (ICD-10-PCS; 2024-07-12)
PROC: 0KCR0ZZ Extirpation of Matter from Left Upper Leg Muscle, Open Approach (ICD-10-PCS; 2024-07-12)
PROC: 30233N1 Transfusion of Nonautologous Red Blood Cells into Peripheral Vein, Percutaneous Approach (ICD-10-PCS; 2024-07-13)
PROC: 0Y380ZZ Control Bleeding in Left Femoral Region, Open Approach (ICD-10-PCS; 2024-07-15)
DX: S72.012A Unspecified intracapsular fracture of left femur, initial encounter for closed fracture (principal); D62 Acute posthemorrhagic anemia; M96.840 Postprocedural hematoma of a musculoskeletal structure following a musculoskeletal system procedure; T79.A22A Traumatic compartment syndrome of left lower extremity, initial encounter; E87.1 Hypo-osmolality and hyponatremia; E44.1 Mild protein-calorie malnutrition; Z68.1 Body mass index [BMI] 19.9 or less, adult; M96.830 Postprocedural hemorrhage of a musculoskeletal structure following a musculoskeletal system procedure; J44.9 Chronic obstructive pulmonary disease, unspecified; E83.42 Hypomagnesemia; D69.59 Other secondary thrombocytopenia; W01.0XXA Fall on same level from slipping, tripping and stumbling without subsequent striking against object, initial encounter; I10 Essential (primary) hypertension; E87.6 Hypokalemia; Y83.8 Other surgical procedures as the cause of abnormal reaction of the patient, or of later complication, without mention of misadventure at the time of the procedure; Z60.2 Problems related to living alone; Z88.5 Allergy status to narcotic agent; Y92.009 Unspecified place in unspecified non-institutional (private) residence as the place of occurrence of the external cause
CPT/HCPCS: 36415; 36430; 72192; 73502; 73560-LT; 73706; 80048; 80053; 80069; 83735; 84443; 85014; 85018; 85025; 85027; 85610; 85651; 85730; 86140; 86850; 86900; 86901; 86923; 93005; 93010; 93971; 94760; 94762; 96365; 96375; 96376; 97110; 97116; 97161; 97164; 97530; 99285-25; A9270; C1713; C1769; J0330; J0690; J1100; J1171; J1650; J2371; J2405; J2704; J3010; J3370; J3475; J3480; J7030; J7050; J7120; P9016; P9035; Q9967

== ENCOUNTER 2024-07-28 17:17 | Inpatient (IN) | payer MEDICARE ==
[~2024-07-28] VITALS: Ht 185.4 cm; Wt 66.3 kg
[~2024-07-28 17:17] MED LIST: ALBU90OI INH; CARV3.125 PO; OXYC5 PO; SULTRIDS PO
[2024-07-28] MEDS ORDERED: Acetaminophen 500 MG Tab PO ONE (18:45)
[2024-07-28] MEDS ORDERED: Ibuprofen 600 MG Tab PO ONE (18:45)
[2024-07-28] MEDS ORDERED: Morphine Sulfate 4 MG/1 ML Injection IV ONE (20:40)
[2024-07-28] MEDS ORDERED: Morphine Sulfate 4 MG/1 ML Injection IV PRN (22:15)
[2024-07-28] MEDS ORDERED: Acetaminophen 325 MG TABLET PO PRN (22:15)
[2024-07-28] MEDS ORDERED: Naloxone HCl 0.4MG / ML 1ML Vial IV PRN (22:20)
[2024-07-28] MEDS ORDERED: OxyCODONE HCL 5 MG TAB PO PRN (22:20)
[2024-07-28] MEDS ORDERED: Ondansetron HCl 2 MG / ML 2ML Vial IV PRN (22:20)
[2024-07-28 22:53] LABS: BASOPHILS ABSOLUTE AUTO 0.04 K/mm3 (0.00-0.23); BASOPHILS PERCENT AUTO 1 % (0-2); EOSINOPHILS ABSOLUTE AUTO 0.12 K/mm3 (0.00-0.68); EOSINOPHILS PERCENT AUTO 2 % (0-6); Hemoglobin 9.8 g/dL (13.5-17.5); IMMATURE GRAN ABSOLUTE AUTO 0.02 K/mm3 (0.00-0.10); IMMATURE GRAN PERCENT AUTO 0 % (0-1); LYMPHOCYTES ABSOLUTE AUTO 0.72 K/mm3 (0.84-5.20); LYMPHOCYTES PERCENT AUTO 13 % (21-46); MONOCYTES ABSOLUTE AUTO 0.82 K/mm3 (0.16-1.47); MONOCYTES PERCENT AUTO 15 % (4-13); Mean Corpuscular HGB 36.3 pg (26.0-34.0); Mean Corpuscular HGB Conc 36.3 g/dL (31.5-36.5); Mean Corpuscular Volume 100 fL (80-100); Mean Platelet Volume 9.1 fL (9.1-12.4); NEUTROPHILS ABSOLUTE AUTO 3.81 K/mm3 (1.96-9.15); NEUTROPHILS PERCENT AUTO 69 % (41-73); Platelet Count 160 K/mm3 (150-400); RDW Standard Deviation 54.7 fL (35.1-46.3); White Blood Cell Count 5.53 K/mm3 (4.00-11.30)
[2024-07-28] MEDS ORDERED: NS 1,000 ML IV SCH (23:00)
[2024-07-28 23:18] LABS: Bun/Creatinine Ratio 12.9 (12.0-20.0); Creatinine, Blood 0.86 mg/dL (0.60-1.20)
[2024-07-28 23:58] VITALS: BP 161/79
[2024-07-29] VITALS (18 sets, daily range): BP systolic 98–163; BP diastolic 56–101
--- NOTE | 2024-07-29 | NUR ---
ARRIVAL TO ROOM 216 FROM ER. PT ARRIVED TO ROOM VIA [facility], PT TRANSFERED VIA SLIDER SHEET. PT A/O X4 AND ANSWERS QUESTIONS APPROPRIATELY. NPO STATUS. ORIENTED TO ROOM AND CALL LIGHT.
--- NOTE | 2024-07-29 00:10 | NUR ---
DR. BAUMANN AT BEDSIDE WITH PATIENT AT 0010.
[2024-07-29 03:17] LABS: BASOPHILS ABSOLUTE AUTO 0.04 K/mm3 (0.00-0.23); BASOPHILS PERCENT AUTO 1 % (0-2); EOSINOPHILS ABSOLUTE AUTO 0.13 K/mm3 (0.00-0.68); EOSINOPHILS PERCENT AUTO 3 % (0-6); Hemoglobin 10.2 g/dL (13.5-17.5); IMMATURE GRAN ABSOLUTE AUTO 0.01 K/mm3 (0.00-0.10); IMMATURE GRAN PERCENT AUTO 0 % (0-1); LYMPHOCYTES ABSOLUTE AUTO 0.74 K/mm3 (0.84-5.20); LYMPHOCYTES PERCENT AUTO 19 % (21-46); MONOCYTES ABSOLUTE AUTO 0.53 K/mm3 (0.16-1.47); MONOCYTES PERCENT AUTO 14 % (4-13); Mean Corpuscular HGB 35.9 pg (26.0-34.0); Mean Corpuscular HGB Conc 36.4 g/dL (31.5-36.5); Mean Corpuscular Volume 99 fL (80-100); Mean Platelet Volume 9.2 fL (9.1-12.4); NEUTROPHILS ABSOLUTE AUTO 2.43 K/mm3 (1.96-9.15); NEUTROPHILS PERCENT AUTO 63 % (41-73); Platelet Count 155 K/mm3 (150-400); RDW Coefficient Variation 14.9 % (11.7-14.2); RDW Standard Deviation 54.7 fL (35.1-46.3); Red Blood Cell Count 2.84 M/mm3 (4.30-5.90); White Blood Cell Count 3.88 K/mm3 (4.00-11.30)
[2024-07-29 03:28] LABS: International Normalized Ratio 1.14; Prothrombin Time Results 12.1 Sec (9.7-11.5)
[2024-07-29 03:36] LABS: Magnesium, Blood 1.6 mg/dL (1.6-2.4)
[2024-07-29 03:41] LABS: Albumin, Blood 3.4 g/dL (3.4-5.0); Albumin/Globulin Ratio 1.2 (0.8-1.8); Bilirubin, Total 0.6 mg/dL (0.1-1.0); Bun/Creatinine Ratio 11.5 (12.0-20.0); Creatinine, Blood 0.87 mg/dL (0.60-1.20); Globulin, Blood 2.8 g/dL (2.2-4.0); Potassium, Blood 3.8 mmol/L (3.5-5.5); Total Protein, Blood 6.2 g/dL (6.4-8.2)
--- NOTE | 2024-07-29 06:00 | NUR ---
SHIFT SUMMARY NOC. PT ADMIT FOR RC-PROSTHETIC FX OF LEFT FEMUR. PT NPO SINCE 0000 ASIDE FROM SIP OF WATER FOR OXYCODONE FOR PAIN. PT VOIDING URINE AND FLUIDS RUNNING PER EMAR. PT'S SODIUM CRITICALLY LOW, DR. BAUMANN AND POSITION CLASSIFICATION SPECIALIST AWARE. NEXT SODIUM LABS AT 0700 AND 1100. WILL GIVE REPORT TO ONCOMING DAY SHIFT NURSE. CALL LIGHT IN REACH.
[2024-07-29] MEDS ORDERED: Carvedilol 3.125 MG Tab PO SCH (08:00)
[2024-07-29] MEDS ORDERED: Docusate Sodium 100 MG Cap PO SCH (09:00)
[2024-07-29] MEDS ORDERED: Midazolam HCl 1MG / ML 2ML Vial IV PRN (11:45)
[2024-07-29] MEDS ORDERED: Lidocaine HCl 1% 5 ML SYR INJ ONE (11:45)
[2024-07-29] MEDS ORDERED: Lactated Ringer's 1,000 ML IV SCH (11:45)
[2024-07-29] MEDS ORDERED: Ipratropium/Albuterol SulF 2.5-0.5MG/3 ML Amp INH PRN (11:50)
[2024-07-29] MEDS ORDERED: Albuterol 2.5 MG/3 ML VIAL INH PRN ×2 (11:50→16:55)
[2024-07-29] MEDS ORDERED: TRANEXAMIC ACID IV SCH (12:20)
[2024-07-29] MEDS ORDERED: NS 1,000 ML IV SCH ×2 (12:20→21:20)
[2024-07-29] MEDS ORDERED: CeFAZolin Sodium 2,000 MG in NS 100 ML IV SCH (12:20)
[2024-07-29] MEDS ORDERED: NS IV SCH (12:20)
--- NOTE | 2024-07-29 12:30 | NUR ---
INTO SDS VIA BED. PT IS A&OX4-REPORTS 5/10 LEFT HIP PAIN. HISTORY AND ALLERGIES REVIEWED. BP 161/101 HR 90'S. LUNGS TIGHT AND DIMINISHED TO BASES, YET SPO2 100% ON RA. PT DENIES SOB. NPO STATUS CONFIRMED. SKIN APPEARS PALE WITH SCATTERED SKIN TEARS.
[2024-07-29] MEDS ORDERED: Tranexamic Acid 1,000 MG in NS 100 ML IV SCH (12:45)
[2024-07-29] MEDS ORDERED: propofoL 150 ML IV ONE (13:37)
[2024-07-29] MEDS ORDERED: Remifentanil 1 MG Vial ONE (13:37)
[2024-07-29] MEDS ORDERED: propofoL 20 ML IV ONE (13:42)
--- NOTE | 2024-07-29 14:49 | NUR ---
07/29/24 1449 Evaristo Rodriguez NOTED: SUTURE REMOVAL BY ORDCATHERINE PRIOR TO PREP OF LEFT HIP
[2024-07-29] MEDS ORDERED: Phenylephrine HCl 100 MCG/ML-NS 10MLSYR (1MG/10ML) ONE ×2 (15:14→15:39)
[2024-07-29] MEDS ORDERED: Bupivacaine 0.25% Epi 1:200000 30 ML Vial ONE ×2 (15:47→15:50)
[2024-07-29] MEDS ORDERED: FentaNYL Citrate 50 MCG/ML 2 ML Injection IV PRN ×2 (16:50→16:55)
[2024-07-29] MEDS ORDERED: Ondansetron HCl 2 MG / ML 2ML Vial IV PRN (16:55)
[2024-07-29] MEDS ORDERED: FentaNYL Citrate 50 MCG/ML 2 ML Injection ONE (16:58)
--- NOTE | 2024-07-29 17:37 | NUR ---
POST-OP PATIENT BACK TO ROOM 216 @1730. VSS, ON RA SATS 99%. AQUACELS X2 TO LEFT HIP C/D/I. PATIENT HAD A SPINAL BLOCK AND REPORTS DECREASED SENSATION TO "BOTTOM OF FEET". ABLE TO WIGGLE TOES AND LIFT FEET. LEFT HIP IS SOFT AND MINIMAL SWELLING NOTED. DENIES PAIN AT THIS TIME. NO NAUSEA. CALL LIGHT IN REACH.
--- NOTE | 2024-07-29 18:41 | NUR ---
SUMMARY NO ACUTE EVENTS, MEDICATED FOR PAIN AND TAKING IN SMALL SIPS OF CL. PATIENT IS DROWSY AND VITALS ARE STABLE. CALL LIGHT IN REACH.
[2024-07-30] MEDS ORDERED: OxyCODONE HCL 5 MG TAB PO PRN (00:32)
[2024-07-30 03:43] VITALS: BP 148/77
--- NOTE | 2024-07-30 06:20 | NUR ---
SHIFT SUMMARY AOX4. VSS. POD 1- L BROCK HIP. AQUACELL DRESSING C/D/I. PT ABLE TO WIGGLE & MOVE LLE, STRONG PULSE. REPORTS 7-8/10 PAIN AFTER RECIEVING 5MG OXYCODONE, DISCUSSED W/DR BAUMANN & HE CHANGED ORDER TO 5-10MG. PT HAS VOIDED MULTx IND W/URINAL. HAS NOT BEEN OOB YET SINCE SURGERY. TOLERATING PO LIQUIDS. CALL LIGHT IN REACH.
[2024-07-30 07:25] LABS: Albumin, Blood 3.1 g/dL (3.4-5.0); Anion Gap 11 mmol/L (3-11); Blood Urea Nitrogen 8 mg/dL (8-24); Bun/Creatinine Ratio 11.2 (12.0-20.0); CO2, Blood 20 mmol/L (21-32); Calcium, Blood 7.6 mg/dL (8.5-10.1); Chloride, Blood 97 mmol/L (98-108); Creatinine, Blood 0.72 mg/dL (0.60-1.20); Glomerular Filtration Rate 99 (60-); Glucose, Blood 100 mg/dL (70-99); Magnesium, Blood 1.6 mg/dL (1.6-2.4); Phosphorus, Blood 2.9 mg/dL (2.5-4.9); Sodium, Blood 124 mmol/L (136-145)
[2024-07-30 07:33] VITALS: BP 157/78
[2024-07-30] MEDS ORDERED: Polyethylene Glycol 3350 17 gm PO PRN (08:30)
[2024-07-30 08:39] LABS: Hematocrit 24.6 % (37.0-53.0); Hemoglobin 8.5 g/dL (13.5-17.5); Mean Corpuscular HGB 36.5 pg (26.0-34.0); Mean Corpuscular HGB Conc 34.6 g/dL (31.5-36.5); Platelet Count 139 K/mm3 (150-400); RDW Coefficient Variation 15.7 % (11.7-14.2); RDW Standard Deviation 61.1 fL (35.1-46.3); Red Blood Cell Count 2.33 M/mm3 (4.30-5.90); White Blood Cell Count 5.57 K/mm3 (4.00-11.30)
[2024-07-30 08:40] LABS: Mean Corpuscular Volume 106 fL (80-100)
[2024-07-30] MEDS ORDERED: Enoxaparin 40 MG/0.4 ML SYR SC SCH (09:00)
[2024-07-30 14:12] VITALS: BP 133/65
--- NOTE | 2024-07-30 16:23 | NUR ---
SHIFT SUMMARY A/OX4. POD 1 L. HIP BROCK. C/O MILD 4/10 PAIN, MEDICATED PER EMAR. ANTONIA TO L HIP C/D/I. WORKED WITH PT TODAY. VSS, NO ACUTE CHANGES AT THIS TIME.
[2024-07-30] MEDS ORDERED: NS 1,000 ML IV SCH (17:00)
[2024-07-30] MEDS ORDERED: Sodium Chloride 1 GM TAB PO SCH (17:00)
[2024-07-30 20:23] VITALS: BP 140/68
[2024-07-30] MEDS ORDERED: Sennosides 8.6 MG Tab PO SCH (21:00)
[2024-07-31 04:48] VITALS: BP 139/69
[2024-07-31 06:08] LABS: Bun/Creatinine Ratio 7.1 (12.0-20.0); Calcium, Blood 7.8 mg/dL (8.5-10.1); Creatinine, Blood 0.56 mg/dL (0.60-1.20); Potassium, Blood 3.4 mmol/L (3.5-5.5)
[2024-07-31 07:04] VITALS: BP 141/81
[2024-07-31] MEDS ORDERED: Potassium Chloride 10 Meq Tablet SA PO ONE (07:20)
--- NOTE | 2024-07-31 08:04 | NUR ---
SHIFT SUMMARY AOX4. VSS. POD 2 L HIP REPAIR. AQUACEL DRESSING C/D/I. PT ABLE TO MOVE LLE, DENIES N/T, REPORTS MIN PAIN TO L HIP & MEDICATED 1x W/5MG OXYCODONE. NA 127 THIS AM. IND W/URINAL. DENIES N/V OR DYSPNEA. CALL LIGHT IN REACH.
[2024-07-31 08:43] LABS: Hematocrit 22.3 % (37.0-53.0); Hemoglobin 7.8 g/dL (13.5-17.5)
[2024-07-31 10:37] LABS: IMMATURE RETIC FRACTION 8.6 % (2.3-16.0); RETIC HGB EQUIVALENT 38.8 pg (28.20-36.60); RETICULOCYTE ABSOLUTE 0.0374 M/mm3 (0.0200-0.1100); RETICULOCYTE COUNT PERCENT 1.74 % (0.50-2.50)
[2024-07-31 11:13] LABS: Percent Saturation 11.7 % (20.0-50.0)
--- NOTE | 2024-07-31 12:03 | NUR ---
OLD BANDAID TO SKIN TEAR ON L FOREARM AND L ELBOW BOTH REMOVED WITH ADHESIVE REMOVER SPRAY, CLEANED W/WOUND CLEANSER. SKIN TEAR TO L FOREARM DRESSED WITH NAN-ADHERENT BANDAGE AND TEGADERM. SKIN TEAR TO L ELBOW DRESSED WITH NON ADHERENT DRESSING AND LARGE BANDAID
[2024-07-31 12:12] VITALS: BP 144/94
[2024-07-31 14:18] LABS: Hematocrit 23.2 % (37.0-53.0); Hemoglobin 8.2 g/dL (13.5-17.5)
[2024-07-31 15:43] VITALS: BP 154/71
--- NOTE | 2024-07-31 17:08 | NUR ---
SHIFT SUMMARY PT IS POD#2. PAIN HAS BEEN MANAGED WITH OXYCODONE. PT HAS DECLINED TO GET OOB THIS SHIFT. BP AND HR SLIGHTLY ELEVATED, MANAGED WITH COREG. PT HAS HAD A POOR APPETITE. PT AFFECT HAS BEEN FLAT. PT USES CALL LIGHT APPROPRIATELY.
--- NOTE | 2024-07-31 18:30 | NUR ---
LOW PO INTAKE PT WAS UNINTERESTED IN EATING DINNER. SOUP, CRACKERS AND COFFEE OFFERED AND PT AGREED TO TRY SOME FOR DINNER. PT REPORTED THAT HE STARTED COUGHING AFTER ATTEMPTING TO EAT, HE THEN VOMITED UP THE FOOD THAT HE HAD EATEN. PT DENIED FEELING NAUSEATED.
--- NOTE | 2024-07-31 18:32 | NUR ---
PT WAS OFFERED OOB BY THIS RN. PT DECLINED. PT PROVIDED WITH EDUCATION REGARDING RISKS OF REMAINING IN BED. PT REPORTED UNDERSTANDING BUT DID NOT FEEL LIKE GETTING OOB.
[2024-07-31 19:38] VITALS: BP 157/79
[2024-08-01 03:34] VITALS: BP 147/78
--- NOTE | 2024-08-01 05:14 | NUR ---
SHIFT SUMMARY POD 3-L BROCK HIP. AQUACEL DRESSING C/D/I. 1P ASSIST W/FWW TO AMBULATE. BRUISING T/O LLE. STRONG PULSE. CAP REFILL <3 SEC. DENIES PAIN TP L HIP. REPORTED NAUSEA & HAD 1 EPISODE EMESIS @BEGINNING OF SHIFT. APPROX MIDNIGHT PT HAD XL LIQUID DRK BOWN INCONT BM & ANOTHER LRG LIQUID BM IN TOLIET. NO FURTHER NAUSEA OR EMESIS SINCE. BRUNO MIN PO LIQUIDS. IND W/URINAL. CALL LIGHT IN REACH.
[2024-08-01 07:28] LABS: BASOPHILS ABSOLUTE AUTO 0.01 K/mm3 (0.00-0.23); BASOPHILS PERCENT AUTO 0 % (0-2); EOSINOPHILS ABSOLUTE AUTO 0.27 K/mm3 (0.00-0.68); EOSINOPHILS PERCENT AUTO 5 % (0-6); Hematocrit 22.4 % (37.0-53.0); IMMATURE GRAN ABSOLUTE AUTO 0.03 K/mm3 (0.00-0.10); IMMATURE GRAN PERCENT AUTO 1 % (0-1); LYMPHOCYTES ABSOLUTE AUTO 0.74 K/mm3 (0.84-5.20); LYMPHOCYTES PERCENT AUTO 14 % (21-46); MONOCYTES PERCENT AUTO 11 % (4-13); Mean Corpuscular HGB 36.5 pg (26.0-34.0); Mean Corpuscular HGB Conc 35.7 g/dL (31.5-36.5); Mean Corpuscular Volume 102 fL (80-100); Mean Platelet Volume 9.6 fL (9.1-12.4); NEUTROPHILS ABSOLUTE AUTO 3.69 K/mm3 (1.96-9.15); NEUTROPHILS PERCENT AUTO 69 % (41-73); Platelet Count 142 K/mm3 (150-400); RDW Standard Deviation 57.1 fL (35.1-46.3); Red Blood Cell Count 2.19 M/mm3 (4.30-5.90); White Blood Cell Count 5.34 K/mm3 (4.00-11.30)
[2024-08-01 07:37] VITALS: BP 134/77
[2024-08-01 07:43] LABS: Bun/Creatinine Ratio 7.9 (12.0-20.0); Calcium, Blood 7.7 mg/dL (8.5-10.1); Creatinine, Blood 0.51 mg/dL (0.60-1.20); Potassium, Blood 3.4 mmol/L (3.5-5.5)
[2024-08-01 14:44] VITALS: BP 131/75
--- NOTE | 2024-08-01 17:50 | NUR ---
END OF SHIFT PT EATING MEAL TRAY. PRESENTLY BACK IN BED. DENIES COMPLAINTS. WILL CONTINUE TO MONITOR
[2024-08-01 20:06] VITALS: BP 149/71
[2024-08-02 02:03] VITALS: BP 138/75
--- NOTE | 2024-08-02 05:17 | NUR ---
SHIFT SUMMARY NOC. PT POD 4 FOR LEFT BROCK HIP. AQUACEL X2 ARE C/D/I. PT AMBULATES WELL TO BR WITH FWW, GB, AND SBA. PT MEDICATED FOR PAIN WITH TYLENOL AND OXYCODONE X1 EACH THIS SHIFT. PT DENIES N/V THIS SHIFT. PT VOIDING URINE. MAKES NEEDS KNOWN, CALL LIGHT IN REACH.
[2024-08-02 06:06] LABS: BASOPHILS ABSOLUTE AUTO 0.03 K/mm3 (0.00-0.23); BASOPHILS PERCENT AUTO 1 % (0-2); EOSINOPHILS ABSOLUTE AUTO 0.44 K/mm3 (0.00-0.68); EOSINOPHILS PERCENT AUTO 10 % (0-6); Hematocrit 22.6 % (37.0-53.0); IMMATURE GRAN ABSOLUTE AUTO 0.02 K/mm3 (0.00-0.10); IMMATURE GRAN PERCENT AUTO 1 % (0-1); LYMPHOCYTES ABSOLUTE AUTO 0.82 K/mm3 (0.84-5.20); LYMPHOCYTES PERCENT AUTO 19 % (21-46); MONOCYTES ABSOLUTE AUTO 0.56 K/mm3 (0.16-1.47); MONOCYTES PERCENT AUTO 13 % (4-13); Mean Corpuscular HGB 35.7 pg (26.0-34.0); Mean Corpuscular HGB Conc 35.4 g/dL (31.5-36.5); Mean Corpuscular Volume 101 fL (80-100); Mean Platelet Volume 9.2 fL (9.1-12.4); NEUTROPHILS ABSOLUTE AUTO 2.37 K/mm3 (1.96-9.15); NEUTROPHILS PERCENT AUTO 56 % (41-73); Platelet Count 136 K/mm3 (150-400); RDW Coefficient Variation 14.5 % (11.7-14.2); RDW Standard Deviation 53.5 fL (35.1-46.3); Red Blood Cell Count 2.24 M/mm3 (4.30-5.90); White Blood Cell Count 4.24 K/mm3 (4.00-11.30)
[2024-08-02 06:38] LABS: Bun/Creatinine Ratio 9.5 (12.0-20.0); Calcium, Blood 7.6 mg/dL (8.5-10.1); Creatinine, Blood 0.53 mg/dL (0.60-1.20); Potassium, Blood 3.1 mmol/L (3.5-5.5)
[2024-08-02] MEDS ORDERED: Magnesium Sulf 2 GM/Water 50ML 50 ML IV ONE (06:50)
[2024-08-02] MEDS ORDERED: Potassium Chloride 20 MEQ TabCR PO ONE (07:00)
[2024-08-02 07:33] VITALS: BP 144/81
--- NOTE | 2024-08-02 10:42 | NUR ---
ASSUMPTION OF CARE THIS RN ASSUMED CARE AT APPROX 0715. PATIENT ALERT - ANSWERS ORIENTATION QUESTIONS APPROPRIATELY. COMMUNICATES NEEDS EFFECTIVELY. VSS. POD 4 L BROCK HIP - PAIN MANAGED PER EMAR. AQUACEL DRESSINGS X2 C/D/I. AMBULATING WITH SBA FWW GB. WORKED WITH PHYSICAL THERAPY THIS MORNING. UP TO CHAIR AFTER BREAKFAST. BEDBATH PERFORMED. TOLERATING PO INTAKE. IV MAGNESIUM AND PO POTASSIUM ADMINISTERED PER EMAR. CALL LIGHT IN REACH.
--- NOTE | 2024-08-02 11:06 | NUR ---
assumed care Assumed care of pt. pt presently sitting up in chair. iv lfa to sl. Denies complaints. states pain control is acceptable right now. Will continue to monitor.
--- NOTE | 2024-08-02 14:19 | NUR ---
report given to [facility]. mihir hughes. all questions answered.
[2024-08-04 16:58] LABS: CORTISOL, FREE BY ED/LC-MS/MS 1.04 ug/dL
== END 2024-08-02 14:45 | DRG 522 ==
LOC: ER 17:17 → SURS 17:18 → ERHOLD 17:18 → SURS 23:48
PROVIDERS: Emergency Medicine; Family Medicine; Hospitalist; Orthopaedic Surgery; Student in an Organized Health Care Education/Training Program; ADMIT Student in an Organized Health Care Education/Training Program
PROC: 0QP704Z Removal of Internal Fixation Device from Left Upper Femur, Open Approach (ICD-10-PCS; principal; 2024-07-29 13:15)
PROC: 0SRS0J9 Replacement of Left Hip Joint, Femoral Surface with Synthetic Substitute, Cemented, Open Approach (ICD-10-PCS; principal; 2024-07-29 13:15)
DX: S72.002A Fracture of unspecified part of neck of left femur, initial encounter for closed fracture (principal); E87.1 Hypo-osmolality and hyponatremia; Z96.643 Presence of artificial hip joint, bilateral; F17.210 Nicotine dependence, cigarettes, uncomplicated; F10.90 Alcohol use, unspecified, uncomplicated; F12.90 Cannabis use, unspecified, uncomplicated; D63.8 Anemia in other chronic diseases classified elsewhere; J42 Unspecified chronic bronchitis; Z60.2 Problems related to living alone; R53.81 Other malaise; Z91.048 Other nonmedicinal substance allergy status; Z98.49 Cataract extraction status, unspecified eye; Z79.891 Long term (current) use of opiate analgesic; Z88.5 Allergy status to narcotic agent; Z79.899 Other long term (current) drug therapy; Z79.2 Long term (current) use of antibiotics; Z79.51 Long term (current) use of inhaled steroids; W19.XXXA Unspecified fall, initial encounter; Y92.009 Unspecified place in unspecified non-institutional (private) residence as the place of occurrence of the external cause
CPT/HCPCS: 36415; 72192; 73502; 80048; 80053; 80069; 82530; 82533; 82607; 82728; 82746; 83540; 83550; 83735; 83930; 83935; 84295; 84300; 84550; 85014; 85018; 85025; 85027; 85045; 85610; 94762; 96374; 96376; 97110; 97110-CQ; 97116-CQ; 97162; 97165; 97530; 97535; 99285-25; A9270; C1713; C1776; G0378; J0690; J1650; J2270; J2371; J2704; J3010; J3475; J7030

== ENCOUNTER 2024-10-28 11:30 | Inpatient (IN) | payer MEDICARE ==
[~2024-10-28] VITALS: Ht 185.4 cm; Wt 63.5 kg
[~2024-10-28 11:30] MED LIST changes: -OXYC5 PO
[2024-10-28 12:00] LABS: BASOPHILS ABSOLUTE AUTO 0.01 K/mm3 (0.00-0.23); BASOPHILS PERCENT AUTO 0 % (0-2); EOSINOPHILS ABSOLUTE AUTO 0.01 K/mm3 (0.00-0.68); EOSINOPHILS PERCENT AUTO 0 % (0-6); Hematocrit 26.2 % (37.0-53.0); Hemoglobin 9.1 g/dL (13.5-17.5); IMMATURE GRAN ABSOLUTE AUTO 0.02 K/mm3 (0.00-0.10); IMMATURE GRAN PERCENT AUTO 0 % (0-1); LYMPHOCYTES ABSOLUTE AUTO 0.85 K/mm3 (0.84-5.20); LYMPHOCYTES PERCENT AUTO 15 % (21-46); MONOCYTES ABSOLUTE AUTO 1.11 K/mm3 (0.16-1.47); MONOCYTES PERCENT AUTO 19 % (4-13); Mean Corpuscular HGB Conc 34.7 g/dL (31.5-36.5); Mean Corpuscular Volume 97 fL (80-100); NEUTROPHILS ABSOLUTE AUTO 3.80 K/mm3 (1.96-9.15); NEUTROPHILS PERCENT AUTO 66 % (41-73); NRBC ABSOLUTE 0.00 K/mm3 (0.00-0.02); NRBC Auto 0.0 /100 WBC (0.0-0.2); Platelet Count 218 K/mm3 (150-400); RDW Coefficient Variation 14.6 % (11.7-14.2); RDW Standard Deviation 51.2 fL (35.1-46.3)
[2024-10-28 12:29] LABS: Magnesium, Blood 1.8 mg/dL (1.6-2.4); Thyroid Stimulating Hormone 0.676 uIU/mL (0.360-4.800)
[2024-10-28 12:33] LABS: Alanine Aminotransfer (ALT/SGP 17.0 U/L (12-78); Albumin, Blood 2.7 g/dL (3.4-5.0); Albumin/Globulin Ratio 0.6 (0.8-1.8); Anion Gap 8.0 mmol/L (3-11); Aspartate Aminotrans (AST/SGOT 41.0 U/L (12-37); Bilirubin, Total 0.5 mg/dL (0.1-1.0); Blood Urea Nitrogen 10.0 mg/dL (8-24); CO2, Blood 27.0 mmol/L (21-32); Calcium, Blood 8.0 mg/dL (8.5-10.1); Chloride, Blood 88.0 mmol/L (98-108); Creatinine, Blood 0.61 mg/dL (0.60-1.20); Globulin, Blood 4.5 g/dL (2.2-4.0); Glucose, Blood 118.0 mg/dL (70-99); Potassium, Blood 3.9 mmol/L (3.5-5.5); Total Protein, Blood 7.2 g/dL (6.4-8.2)
[2024-10-28 12:34] LABS: Sodium, Blood 119.0 mmol/L (136-145)
[2024-10-28 12:42] LABS: Source, Urine Clean Catch
[2024-10-28 12:46] LABS: Bilirubin, Urine Neg (Neg); Color, Urine Yellow (P-Yellow); Glucose Qualitative, Urine Neg (Neg); Ketones, Urine Neg (Neg); Leukocyte Esterase, Urine Neg (Neg); Protein, Urine 1+ (Neg); Specific Gravity, Urine 1.010 (1.003-1.022); Urobilinogen, Urine NORM (Normal)
[2024-10-28 12:58] LABS: Red Blood Cells, Urine 0-2 /hpf (0-2); White Blood Cells, Urine Not Seen /hpf (0-5)
[2024-10-28] MEDS ORDERED: Ipratropium/Albuterol SulF 2.5-0.5MG/3 ML Amp INH ONE (13:30)
[2024-10-28] MEDS ORDERED: NS 1,000 ML IV SCH ×2 (16:00→16:15)
[2024-10-28] MEDS ORDERED: Magnesium Hydroxide Conc 10 ML UDC PO PRN (16:05)
[2024-10-28 18:20] VITALS: BP 126/52
[2024-10-28 18:29] LABS: Anion Gap 11.0 mmol/L (3-11); Blood Urea Nitrogen 9.0 mg/dL (8-24); CO2, Blood 27.0 mmol/L (21-32); Calcium, Blood 8.0 mg/dL (8.5-10.1); Chloride, Blood 90.0 mmol/L (98-108); Creatinine, Blood 0.55 mg/dL (0.60-1.20); Glucose, Blood 103.0 mg/dL (70-99); Potassium, Blood 3.6 mmol/L (3.5-5.5); Sodium, Blood 124.0 mmol/L (136-145)
[2024-10-28 19:07] LABS: Ferritin, Serum 279.0 ng/mL (26-388); Total Iron Binding Capacity 187.0 ug/dL (250-450)
[2024-10-28] MEDS ORDERED: MOBIC15 MG PO (19:25)
--- NOTE | 2024-10-28 19:53 | NUR ---
ADMIT NOTE- PT ADMITTED THROUGH THE ED, ARRIVED ON THE FLOOR AT 1825. BEDSIDE REPORT COMPLETED WITH NIGHT RN. 2 RN SKIN CHECK COMPLETED WITH NIGHT RN. SCD'S PLACED, TELE PLACED IVF STARTED. OF NOTE- THE PT HAD A RECENT HIP REPLACEMENT AFTER A FAILED PINNING AND REPAIR. THE AREA AROUND THE SCAR IS LIGHT RED AND HOT TO THE TOUCH, WHEN COMPARED TO SURROUNDING SKIN. NIGHT RN TOOK PHOTOS AND IS NOTING IN HER ASSESSMENT WELL. AREA SEEMS TO HAVE +1 PITTING EDEMA WELL. NIGHT RN TO COMPLETE ADMIT. PT IN BED, CALL LIGHT IN REACH NO S&S OF DISTRESS NOTED.
[2024-10-28 22:27] LABS: Anion Gap 9.0 mmol/L (3-11); Blood Urea Nitrogen 11.0 mg/dL (8-24); CO2, Blood 28.0 mmol/L (21-32); Calcium, Blood 7.8 mg/dL (8.5-10.1); Chloride, Blood 89.0 mmol/L (98-108); Creatinine, Blood 0.62 mg/dL (0.60-1.20); Glucose, Blood 99.0 mg/dL (70-99); Potassium, Blood 3.9 mmol/L (3.5-5.5); Sodium, Blood 122.0 mmol/L (136-145)
[2024-10-29] VITALS (8 sets, daily range): BP systolic 104–124; BP diastolic 64–78
[2024-10-29 02:37] LABS: Anion Gap 8.0 mmol/L (3-11); Blood Urea Nitrogen 10.0 mg/dL (8-24); CO2, Blood 27.0 mmol/L (21-32); Calcium, Blood 7.7 mg/dL (8.5-10.1); Chloride, Blood 90.0 mmol/L (98-108); Creatinine, Blood 0.62 mg/dL (0.60-1.20); Glucose, Blood 99.0 mg/dL (70-99); Potassium, Blood 3.8 mmol/L (3.5-5.5); Sodium, Blood 121.0 mmol/L (136-145)
--- NOTE | 2024-10-29 05:44 | NUR ---
SHIFT SUMMARY PT ADMITTED FROM ED JUST PRIOR TO CHANGE OF SHIFT. PT WITH SERIAL BMP'S TO CHECK NA LEVEL. NA LEVEL 124, 122, 121. PT ON 1L FREE WATER RESTRICTION AND HAS NS RUNNING AT 100ML/HR. PT'S LEFT HIP RED AND WARM- AREA MARKED, PICTURE TAKEN, AND DR. PALMER NOTIFIED WHEN HE WAS ROUNDING ON PT. PT STATES HIS HIP HAS BEEN REDENNED SINCE HIS SURGERIES APPROX 3 MONTHS AGO. MEPELEX PLACED TO COCCYX FOR PROTECTION- PT WITH BLANCHABLE REDNESS. PT MEDICATED FOR LEFT HIP PAIN WITH OXYCODONE PER EMAR. PT AWAKE MOST OF THE NIGHT- DENIES COMPLAINTS. BED IN LOWEST POSITION, CALL LIGHT WITHIN REACH, SIDERAILS UP X2.
[2024-10-29 07:25] LABS: Anion Gap 9.0 mmol/L (3-11); Blood Urea Nitrogen 8.0 mg/dL (8-24); CO2, Blood 25.0 mmol/L (21-32); Calcium, Blood 7.4 mg/dL (8.5-10.1); Chloride, Blood 93.0 mmol/L (98-108); Creatinine, Blood 0.63 mg/dL (0.60-1.20); Glucose, Blood 118.0 mg/dL (70-99); Potassium, Blood 3.3 mmol/L (3.5-5.5); Sodium, Blood 124.0 mmol/L (136-145)
[2024-10-29] MEDS ORDERED: Enoxaparin 40 MG/0.4 ML SYR SC SCH (09:00)
[2024-10-29 10:50] LABS: Anion Gap 7.0 mmol/L (3-11); Blood Urea Nitrogen 8.0 mg/dL (8-24); CO2, Blood 28.0 mmol/L (21-32); Calcium, Blood 7.8 mg/dL (8.5-10.1); Chloride, Blood 94.0 mmol/L (98-108); Creatinine, Blood 0.6 mg/dL (0.60-1.20); Glucose, Blood 84.0 mg/dL (70-99); Phosphorus, Blood 3.5 mg/dL (2.5-4.9); Potassium, Blood 3.6 mmol/L (3.5-5.5); Sodium, Blood 125.0 mmol/L (136-145)
[2024-10-29] MEDS ORDERED: Magnesium Sulf 2 GM/Water 50ML 50 ML IV ONE (11:35)
[2024-10-29 16:43] LABS: Anion Gap 9.0 mmol/L (3-11); Blood Urea Nitrogen 9.0 mg/dL (8-24); CO2, Blood 27.0 mmol/L (21-32); Calcium, Blood 7.9 mg/dL (8.5-10.1); Chloride, Blood 94.0 mmol/L (98-108); Creatinine, Blood 0.55 mg/dL (0.60-1.20); Glucose, Blood 109.0 mg/dL (70-99); Potassium, Blood 4.2 mmol/L (3.5-5.5); Sodium, Blood 126.0 mmol/L (136-145)
--- NOTE | 2024-10-29 19:12 | NUR ---
SHIFT SUMMARY PT A&OX4. PT ADMITTED DUE TO HYPONATREMIA. PT REPORTS SOME PAIN ON BACK, PT DENIED PAIN MEDS. PT USES URINAL AND AMBULATES TO TOILET WITH ONE ASSIST AND FWW. LAST SODIUM RESULTS WAS 126. RELAYED TO . PT HAD ULTRASOUND OF HIP. NOTIFIED RESULTS TO . PT GETTING NS AT 75ML/HR. PT RECIEVED NEW IV TODAY DUE TO PT PULLED WHEN AMBULATING, "ON ACCIDENT" PER PT. PT ON TELE. PT ON FREE WATER RESTRICTION, "PT TOLERATES RESTRICTION." PT IN BED, BED IN LOWEST POSITION, CALL LIGHT IN REACH. VSS. PT REPORTS NO CHEST PAIN.
[2024-10-29] MEDS ORDERED: Artificial Tear Opth Oint 3.5 GM RIGHTEYE PRN (21:20)
[2024-10-30 00:53] LABS: Anion Gap 8.0 mmol/L (3-11); Blood Urea Nitrogen 9.0 mg/dL (8-24); CO2, Blood 25.0 mmol/L (21-32); Calcium, Blood 7.7 mg/dL (8.5-10.1); Chloride, Blood 96.0 mmol/L (98-108); Creatinine, Blood 0.65 mg/dL (0.60-1.20); Glucose, Blood 104.0 mg/dL (70-99); Potassium, Blood 4.1 mmol/L (3.5-5.5); Sodium, Blood 125.0 mmol/L (136-145)
[2024-10-30 04:49] VITALS: BP 120/75
--- NOTE | 2024-10-30 06:17 | NUR ---
SHIFT SUMMARY PT SLEPT SHORT INTERVALS ONLY DURING THE NIGHT. NS CONTINUES TO INFUSE PER ORDER. LAST NA RESULT WAS 125. PT MEDICATED FOR LEFT HIP PAIN X2 WITH OXYCODONE PER EMAR. PT C/O DRY RIGHT EYE WITH BLURRY VISION- STATES EARLIER IN THE DAY OR THE DAY BEFORE HE HAD SOMETHING IN THIS EYE WHICH HE WAS ABLE TO REMOVE, BUT EYE HAD BEEN INCREASINGLY BOTHERING HIM. EYE ASSESSED, AND NO FOREIGN OBJECT WAS SEEN, EYE WAS NOT REDENNED. ROBOTYPE OPERATOR PROVIDER NOTIFIED AND ORDER RECEIVED FOR LACRILUBE. EYE PATCH PLACED PER PT REQUEST FOR COMFORT. PT OOB AMBULATING TO BATHROOM WITH FWW AND 1 ASSIST. BED IN LOWEST POSITION, CALL LIGHT WITHIN REACH, SIDERAILS UP X2.
[2024-10-30 07:20] VITALS: BP 128/68
--- NOTE | 2024-10-30 07:52 | NUR ---
NOTE NIGHT RN REPORTED PT REPORTED "DECREASE VISION WITH BROWN SPOTS IN R EYE." PT REPORTS "FELT LIKE I GOT SOMETHING IN MY EYE AND VISION GOT WORSE." PT CURRENTLY HAS GAUZE W TAPE OVER EYE. REPORTED EYE STATE TO REPORTED MORNING LABS TO DR. ROSADO CURRENTLY AT PT BEDSIDE TO ASSESS.
[2024-10-30 08:52] LABS: Anion Gap 8.0 mmol/L (3-11); Blood Urea Nitrogen 9.0 mg/dL (8-24); CO2, Blood 24.0 mmol/L (21-32); Calcium, Blood 7.6 mg/dL (8.5-10.1); Chloride, Blood 97.0 mmol/L (98-108); Creatinine, Blood 0.62 mg/dL (0.60-1.20); Glucose, Blood 94.0 mg/dL (70-99); Potassium, Blood 4.2 mmol/L (3.5-5.5); Sodium, Blood 125.0 mmol/L (136-145)
[2024-10-30] MEDS ORDERED: Balanced Salt Solution 15ML RIGHTEYE SCH (09:00)
[2024-10-30] MEDS ORDERED: Dextran/Hypromellose/Glycerin 15 DROP/ML BTL RIGHTEYE SCH (09:00)
--- NOTE | 2024-10-30 10:18 | NUR ---
NOTE DR. ROBLES D/C COREG AND FREE WATER RESTRICTION. DR. ROBLES GAVE INSTRUCTIONS TO PT ABOUT NOT GOING OVER 2 L OF FREE WATER. DR. ROBLES SAID "WILL TRY TO CONSULT MARR AND OPTHAMOLOGY TOMORROW FOR HIP AND EYE, NEITHER ONE CONTRACTS MANAGER TODAY." DR ROBLES REPORTED "NO NEED TO BE NPO AT MIDNIGHT."
[2024-10-30 11:45] VITALS: BP 114/73
[2024-10-30 15:38] VITALS: BP 125/75
--- NOTE | 2024-10-30 19:58 | NUR ---
SHIFT SUMMARY PT A&OX4. PT ADMITTED DUE TO HYPONATREMIA. PT REPORTS SOME PAIN ON BACK, PAIN MANAGED PER EMAR. PT USES URINAL AND AMBULATES TO TOILET WITH ONE ASSIST AND FWW. PT ON TELE, NO TELE REPORTS. PT IN BED, BED IN LOWEST POSITION CALL LIGHT IN REACH. VSS. AWAITING CONSULTS. PT REPORTS NO CHEST PAIN. PT DENIED EYE DROPS/TREATMENT DUE TO REPORTS OF "WANTS TO WAIT TO FIND OUT WHAT IS GOING ON WITH MY EYE."
[2024-10-30 20:11] VITALS: BP 120/92
[2024-10-31] VITALS (7 sets, daily range): BP systolic 126–135; BP diastolic 60–80
--- NOTE | 2024-10-31 04:11 | NUR ---
SHIFT SUMMARY 69 YR M ADMITTED ON 10/28/24. DNR. NO ACUTE CHANGES THIS SHIFT. HE IS A&O X 4 AND CALLS APPROPRIATELY FOR ASSISTANCE. PT USED HIS EYE DROPS THIS SHIFT BUT ONLY IN HIS LEFT EYE. 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 NO ADVERSE REPORTS FROM [employer] MANUFACTURER THIS SHIFT. PT MEDICATED FOR PAIN PER EMAR AND APPEARS TO HAVE SLEPT COMFORTABLY FOR MOST OF THE NIGHT. BED IN LOW POSITION AND CALL LIGHT IN REACH.
[2024-10-31 07:31] LABS: BASOPHILS ABSOLUTE AUTO 0.02 K/mm3 (0.00-0.23); BASOPHILS PERCENT AUTO 1 % (0-2); EOSINOPHILS ABSOLUTE AUTO 0.14 K/mm3 (0.00-0.68); EOSINOPHILS PERCENT AUTO 3 % (0-6); Hematocrit 22.8 % (37.0-53.0); Hemoglobin 7.9 g/dL (13.5-17.5); IMMATURE GRAN ABSOLUTE AUTO 0.01 K/mm3 (0.00-0.10); IMMATURE GRAN PERCENT AUTO 0 % (0-1); LYMPHOCYTES ABSOLUTE AUTO 0.99 K/mm3 (0.84-5.20); LYMPHOCYTES PERCENT AUTO 24 % (21-46); MONOCYTES ABSOLUTE AUTO 0.56 K/mm3 (0.16-1.47); MONOCYTES PERCENT AUTO 13 % (4-13); Mean Corpuscular HGB Conc 34.6 g/dL (31.5-36.5); Mean Corpuscular Volume 97 fL (80-100); NEUTROPHILS ABSOLUTE AUTO 2.46 K/mm3 (1.96-9.15); NEUTROPHILS PERCENT AUTO 59 % (41-73); NRBC ABSOLUTE 0.00 K/mm3 (0.00-0.02); NRBC Auto 0.0 /100 WBC (0.0-0.2); Platelet Count 175 K/mm3 (150-400); RDW Coefficient Variation 14.6 % (11.7-14.2); RDW Standard Deviation 52.2 fL (35.1-46.3)
[2024-10-31 07:51] LABS: Anion Gap 10.0 mmol/L (3-11); Blood Urea Nitrogen 10.0 mg/dL (8-24); CO2, Blood 24.0 mmol/L (21-32); Calcium, Blood 7.8 mg/dL (8.5-10.1); Chloride, Blood 94.0 mmol/L (98-108); Creatinine, Blood 0.62 mg/dL (0.60-1.20); Glucose, Blood 102.0 mg/dL (70-99); Potassium, Blood 4.0 mmol/L (3.5-5.5); Sodium, Blood 124.0 mmol/L (136-145)
[2024-10-31 12:38] LABS: Prothrombin Time Results 13.4 Sec (9.7-11.5)
[2024-10-31 16:20] LABS: Appearance, Synovial Fluid Bloody (Clear); BODY FLUID RBC 0.039 M/mm3 (0-0); Color, Synovial Fluid Red (None-P Yel); RBC Count, Synovial Fluid 39000 /mm3 (0-0); WBC Count, Synovial Fluid 66 /mm3 (0-180)
[2024-10-31 16:28] LABS: Eos, Synovial Fluid 1 % (0-2); Lymphs, Synovial Fluid 15 % (0-15); Monocytes/Macrophages, Synovia 8 % (0-65); Neutrophils, Synovial Fluid 76 % (0-24)
[2024-10-31] MEDS ORDERED: OXYC5 PO (17:59)
--- NOTE | 2024-10-31 19:18 | NUR ---
SHIFT SUMMARY: PT A&O X4. PLEASANT AND COOPERATIVE WITH CARE. PT C/O L. HIP PAIN THIS SHIFT. ERYTHEMA AND WARMTH FROM L. HIP NOTED. CONSULTED DR. MARR FROM [facility]. PT HAD L. HIP ASPIRATION THIS SHIFT TO RULE OUT ABSCESS VS HEMATOMA. PT WHEELED TO OPTHOMOLOGIST THIS AFTERNOON FOR BLURINESS AND DISCOLORATION. 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 ONE PERSON ASSIST c FWW AND GB TO RESTROOM. C/O CONSTIPATION. CALL LIGHT IN REACH. BED IN LOWEST POSITION.
[2024-11-01 03:25] VITALS: BP 128/92
--- NOTE | 2024-11-01 04:13 | NUR ---
SHIFT SUMMARY: PT IS AOX4 AND PLEASENT AND COOPERATIVE WITH CARE. PT RESTING THROUGH OUT SHIFT. PT IS VOIDING IND WITH URNIAL. MEDICATED PER EMAR. PT ON TELLY NSR @ 82. NO ACUTE CHANGES DURING THIS SHIFT. BED IN LOWEST POSITION AND CALL LIGHT IN REACH.
[2024-11-01 05:17] LABS: BASOPHILS ABSOLUTE AUTO 0.02 K/mm3 (0.00-0.23); BASOPHILS PERCENT AUTO 0 % (0-2); EOSINOPHILS ABSOLUTE AUTO 0.11 K/mm3 (0.00-0.68); EOSINOPHILS PERCENT AUTO 2 % (0-6); Hematocrit 23.5 % (37.0-53.0); Hemoglobin 8.2 g/dL (13.5-17.5); IMMATURE GRAN ABSOLUTE AUTO 0.02 K/mm3 (0.00-0.10); IMMATURE GRAN PERCENT AUTO 0 % (0-1); LYMPHOCYTES ABSOLUTE AUTO 0.75 K/mm3 (0.84-5.20); LYMPHOCYTES PERCENT AUTO 14 % (21-46); MONOCYTES ABSOLUTE AUTO 0.81 K/mm3 (0.16-1.47); MONOCYTES PERCENT AUTO 15 % (4-13); Mean Corpuscular HGB Conc 34.9 g/dL (31.5-36.5); Mean Corpuscular Volume 95 fL (80-100); NEUTROPHILS ABSOLUTE AUTO 3.77 K/mm3 (1.96-9.15); NEUTROPHILS PERCENT AUTO 69 % (41-73); NRBC ABSOLUTE 0.00 K/mm3 (0.00-0.02); NRBC Auto 0.0 /100 WBC (0.0-0.2); Platelet Count 188 K/mm3 (150-400); RDW Coefficient Variation 14.2 % (11.7-14.2); RDW Standard Deviation 49.3 fL (35.1-46.3)
[2024-11-01 07:45] VITALS: BP 130/81
[2024-11-01] MEDS ORDERED: SODCHL1 PO (10:01)
[2024-11-01] MEDS ORDERED: FERSU300 PO (10:01)
--- NOTE | 2024-11-01 10:51 | NUR ---
DISCHARGE NOTE PT DISCHARGED TO HOME, PICKED UP BY HIS SISTER. IV REMOVED, TELE RETURNED. DISCHARGE INFORMATION AND EDUCATION PROVIDED TO THE PT. MEDICATIONS FAXED TO THE PHARMACY OF HIS CHOICE. PERSONAL BELONGINGS RETURNED.
[2024-11-01 12:19] LABS: Anion Gap 13.0 mmol/L (3-11); Blood Urea Nitrogen 8.0 mg/dL (8-24); CO2, Blood 24.0 mmol/L (21-32); Calcium, Blood 8.3 mg/dL (8.5-10.1); Chloride, Blood 90.0 mmol/L (98-108); Creatinine, Blood 0.54 mg/dL (0.60-1.20); Glucose, Blood 106.0 mg/dL (70-99); Potassium, Blood 4.1 mmol/L (3.5-5.5); Sodium, Blood 123.0 mmol/L (136-145)
== END 2024-11-01 10:42 | disposition home health service (06) | DRG 640 ==
LOC: ER 11:30 → ERHOLD 15:59 → MEDS 15:59
PROVIDERS: Emergency Medicine; Internal Medicine; ADMIT Hospitalist
PROC: 0J9M3ZZ Drainage of Left Upper Leg Subcutaneous Tissue and Fascia, Percutaneous Approach (ICD-10-PCS; principal; 2024-10-31)
DX: E87.1 Hypo-osmolality and hyponatremia (principal); E43 Unspecified severe protein-calorie malnutrition; L76.32 Postprocedural hematoma of skin and subcutaneous tissue following other procedure; Z68.1 Body mass index [BMI] 19.9 or less, adult; Y83.8 Other surgical procedures as the cause of abnormal reaction of the patient, or of later complication, without mention of misadventure at the time of the procedure; D53.9 Nutritional anemia, unspecified; H33.001 Unspecified retinal detachment with retinal break, right eye; Z66 Do not resuscitate; Z96.643 Presence of artificial hip joint, bilateral; Z88.5 Allergy status to narcotic agent; Z72.0 Tobacco use
CPT/HCPCS: 10030; 36415; 71046; 73502; 76882; 80048; 80053; 81001; 82607; 82728; 82746; 83540; 83550; 83690; 83735; 83880; 83930; 83935; 84100; 84300; 84443; 85025; 85610; 85651; 85730; 86140; 87070; 87075; 89051; 89060; 93005; 93010; 97110; 97161; 99284-25; A9270; J1650; J3475; J7030

== ENCOUNTER 2024-11-11 10:02 | Inpatient (IN) | payer MEDICARE ==
[~2024-11-11] VITALS: Ht 185.4 cm; Wt 57.5 kg
[~2024-11-11 10:02] MED LIST changes: +FERSU300 PO; +MOBIC15 MG PO; +OXYC5 PO; +SODCHL1 PO
[2024-11-11] MEDS ORDERED: ALBU2.5V5 INH (10:32)
[2024-11-11] MEDS ORDERED: MISCSOL (10:35)
[2024-11-11] MEDS ORDERED: PRED FORTE5 ML RIGHTEYE (10:36)
[2024-11-11] MEDS ORDERED: POLYMYXIN B-TMP10 ML RIGHTEYE (10:37)
[2024-11-11 11:38] LABS: BASOPHILS ABSOLUTE AUTO 0.01 K/mm3 (0.00-0.23); BASOPHILS PERCENT AUTO 0 % (0-2); EOSINOPHILS ABSOLUTE AUTO 0.01 K/mm3 (0.00-0.68); EOSINOPHILS PERCENT AUTO 0 % (0-6); Hematocrit 24.1 % (37.0-53.0); Hemoglobin 8.7 g/dL (13.5-17.5); IMMATURE GRAN ABSOLUTE AUTO 0.02 K/mm3 (0.00-0.10); IMMATURE GRAN PERCENT AUTO 0 % (0-1); LYMPHOCYTES ABSOLUTE AUTO 0.50 K/mm3 (0.84-5.20); LYMPHOCYTES PERCENT AUTO 9 % (21-46); MONOCYTES ABSOLUTE AUTO 0.89 K/mm3 (0.16-1.47); MONOCYTES PERCENT AUTO 17 % (4-13); Mean Corpuscular HGB Conc 36.1 g/dL (31.5-36.5); Mean Corpuscular Volume 94 fL (80-100); NEUTROPHILS ABSOLUTE AUTO 3.90 K/mm3 (1.96-9.15); NEUTROPHILS PERCENT AUTO 73 % (41-73); NRBC ABSOLUTE 0.00 K/mm3 (0.00-0.02); NRBC Auto 0.0 /100 WBC (0.0-0.2); Platelet Count 230 K/mm3 (150-400); RDW Coefficient Variation 13.8 % (11.7-14.2); RDW Standard Deviation 47.3 fL (35.1-46.3)
[2024-11-11 12:12] VITALS: BP 128/66
--- NOTE | 2024-11-11 12:21 | NUR ---
THIS RN SPOKE TO DR. CULLEN ABOUT PT HAVING A 9 BEAT RUN OF VTACH. PT ASYMPTOMATIC. DR. CAMERON WOULD LIKE OT BE NOTIFIED WHEN THE PT'S CHEMISTRY PANNEL RESULTS.
--- NOTE | 2024-11-11 12:26 | NUR ---
PT WAS A DIRECT ADMIT FROM DR. CAMERON FOR HYPONATREMIA. THE PT COMES FROM HOME AND ARRIVED VIA W/C WITH CLOSE FRIEND AT BEDSIDE. THE PT'S CIGERETES AND LICENSED LOAN OFFICER WAS SENT HOME WITH THE PT'S RADHA. THE PT IS A 1P ASSIST W/ FWW. HER HAD LEFT HIP SURGERY THIS YEAR AND CONTINUES TO HAVE PAIN. ON ASSESSMENT OF THE LEFT HIP THIS RN FOUND THAT PART OF THE INCISION IS WARM, RED, SWOLLEN, AND TENDER. THE SITE WAS MARKED WITH A PEN AND PHOTOS WERE ADDED TO THE CHART. DR. CAMERON MADE AWARE AND ORDERED CT OF LEFT HIP. HOME PAIN MEDICATIONS RESTARTED. ON TELE THE PT IS SR/ST 80'S-100'S. 9 BEAT RUN OF VTACH NOTED. HE REMAINS ON RA AND DENIES ANY SOB. SP02> 95%. SEE NOTES FOR UPDATES.
[2024-11-11 12:59] LABS: Magnesium, Blood 1.7 mg/dL (1.6-2.4)
[2024-11-11 13:03] LABS: Alanine Aminotransfer (ALT/SGP 19.0 U/L (12-78); Albumin, Blood 2.5 g/dL (3.4-5.0); Albumin/Globulin Ratio 0.6 (0.8-1.8); Aspartate Aminotrans (AST/SGOT 25.0 U/L (12-37); Bilirubin, Total 0.5 mg/dL (0.1-1.0); Blood Urea Nitrogen 6.0 mg/dL (8-24); CO2, Blood 24.0 mmol/L (21-32); Calcium, Blood 8.1 mg/dL (8.5-10.1); Chloride, Blood 84.0 mmol/L (98-108); Creatinine, Blood 0.5 mg/dL (0.60-1.20); Globulin, Blood 4.2 g/dL (2.2-4.0); Glucose, Blood 111.0 mg/dL (70-99); Phosphorus, Blood 2.9 mg/dL (2.5-4.9); Potassium, Blood 3.7 mmol/L (3.5-5.5); Total Protein, Blood 6.7 g/dL (6.4-8.2)
[2024-11-11 13:04] LABS: Anion Gap 11.0 mmol/L (3-11); Sodium, Blood 115.0 mmol/L (136-145)
[2024-11-11] MEDS ORDERED: NS 500 ML IV ONE (14:55)
[2024-11-11 15:06] VITALS: BP 114/59
[2024-11-11] MEDS ORDERED: PrednisoLONE 1% Opth Susp 5 ML RIGHTEYE SCH (17:00)
[2024-11-11] MEDS ORDERED: Polymyxin B /Trimethoprim Opth Soln 10 ML RIGHTEYE SCH (17:00)
[2024-11-11 19:36] LABS: Anion Gap 9.0 mmol/L (3-11); Blood Urea Nitrogen 9.0 mg/dL (8-24); CO2, Blood 27.0 mmol/L (21-32); Calcium, Blood 7.9 mg/dL (8.5-10.1); Chloride, Blood 86.0 mmol/L (98-108); Creatinine, Blood 0.52 mg/dL (0.60-1.20); Glucose, Blood 113.0 mg/dL (70-99); Potassium, Blood 3.6 mmol/L (3.5-5.5); Sodium, Blood 118.0 mmol/L (136-145)
--- NOTE | 2024-11-11 19:40 | NUR ---
MD NOTIFICATION OF NA 118 MD AT [facility] AND DISCUSSED SODIUM INCREASED FROM 115 TO 118. HAS NA DRAWS Q 4 HOURS. NO CHANGE TO TREATMENT AND PT GETTING IVF NS BOLUS OF 500 CC RUNNING AT THIS TIME.
[2024-11-11 20:27] VITALS: BP 106/57
--- NOTE | 2024-11-11 22:10 | NUR ---
UPDATE TO NEPHROLOGY REVIEWED LABS AND URINE OUTPUT W [facility]A TO START NS AT 75 IF PT K DROPS TO [address] ISLAS. CONTINUE Q 4 NA LEVELS.
[2024-11-11 23:05] LABS: Anion Gap 9.0 mmol/L (3-11); Blood Urea Nitrogen 10.0 mg/dL (8-24); CO2, Blood 27.0 mmol/L (21-32); Calcium, Blood 7.7 mg/dL (8.5-10.1); Chloride, Blood 85.0 mmol/L (98-108); Creatinine, Blood 0.63 mg/dL (0.60-1.20); Glucose, Blood 102.0 mg/dL (70-99); Potassium, Blood 3.9 mmol/L (3.5-5.5); Sodium, Blood 117.0 mmol/L (136-145)
[2024-11-11] MEDS ORDERED: NS 500 ML IV SCH (23:15)
[2024-11-12 00:04] VITALS: BP 116/71
[2024-11-12 02:53] LABS: Anion Gap 9.0 mmol/L (3-11); Blood Urea Nitrogen 11.0 mg/dL (8-24); CO2, Blood 25.0 mmol/L (21-32); Calcium, Blood 7.4 mg/dL (8.5-10.1); Chloride, Blood 89.0 mmol/L (98-108); Creatinine, Blood 0.59 mg/dL (0.60-1.20); Glucose, Blood 98.0 mg/dL (70-99); Potassium, Blood 4.6 mmol/L (3.5-5.5); Sodium, Blood 118.0 mmol/L (136-145)
--- NOTE | 2024-11-12 03:17 | NUR ---
NOTIFICATION FOR CRITICAL NA AT 118 MD BANEGAS NOT NOTIFIED ON PT ROUNDING, HE ONLY WANTS TO BE CALLED FOR NA LESS THAN 118. NOTIFIED AT 117 ON LAST DRAW WHEN NS AT 75 INITIATED. NEXT DRAW AT 0600 WITH AM LABS.
[2024-11-12 04:30] VITALS: BP 117/70
--- NOTE | 2024-11-12 05:21 | NUR ---
END OF SHIFT REPORT PT HEART RATE IN 90'S TO LOW 100'S W EXERTION W NSR W CONDUCTED PACS. PT DENIES CHEST PAIN OR PALPITATIONS. 500 CC BOLUS COMPLETED AND SODIUM DRAWN AND RESULTED AT 118. MD CAME TO BEDSIDE TO CHECK NEURO STATUS AND PT VS. RN TO CALL FOR SODIUM LEVELS LESS THAN 118 AND WILL RESTART NS AT 75. CONFIMED PLAN OF CARE W DR Tenorio RENAL. NEXT LEVEL 117 AND NS STARTED AT 75. FOLLOWING LEVEL WAS 118. WAITING TO DRAW NEXT NA WITH AM LABS AT 0600. PAIN CONTROLLED W PRN OXYCODONE TO LEFT LEG. ONE AREA OF INCISION OF ORIF 3 MONTHS AGO RED AND PREVIOUSLY MARKED BY TEAM. NO EXTENSION OF REDNESS BEYOND MARKED BORDER OVERNIGHT. PT PLACING ICE PACK INTERMITTENTLY TO AREA OVERNIGHT FOR 15-20 MINUTE INTERVALS. 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 RENAL IS CONSULTED. PENDING CT RESULTS DONE YESTERDAY. PT MAKING CLEAR YELLOW URINE THROUGHOUT THE NIGHT.
[2024-11-12 06:12] LABS: BASOPHILS ABSOLUTE AUTO 0.02 K/mm3 (0.00-0.23); BASOPHILS PERCENT AUTO 1 % (0-2); EOSINOPHILS ABSOLUTE AUTO 0.05 K/mm3 (0.00-0.68); EOSINOPHILS PERCENT AUTO 1 % (0-6); Hematocrit 21.8 % (37.0-53.0); Hemoglobin 7.6 g/dL (13.5-17.5); IMMATURE GRAN ABSOLUTE AUTO 0.01 K/mm3 (0.00-0.10); IMMATURE GRAN PERCENT AUTO 0 % (0-1); LYMPHOCYTES ABSOLUTE AUTO 0.86 K/mm3 (0.84-5.20); LYMPHOCYTES PERCENT AUTO 20 % (21-46); MONOCYTES ABSOLUTE AUTO 0.57 K/mm3 (0.16-1.47); MONOCYTES PERCENT AUTO 13 % (4-13); Mean Corpuscular HGB Conc 34.9 g/dL (31.5-36.5); Mean Corpuscular Volume 94 fL (80-100); NEUTROPHILS ABSOLUTE AUTO 2.73 K/mm3 (1.96-9.15); NEUTROPHILS PERCENT AUTO 64 % (41-73); NRBC ABSOLUTE 0.00 K/mm3 (0.00-0.02); NRBC Auto 0.0 /100 WBC (0.0-0.2); Platelet Count 206 K/mm3 (150-400); RDW Coefficient Variation 13.9 % (11.7-14.2); RDW Standard Deviation 47.8 fL (35.1-46.3)
[2024-11-12 06:36] LABS: Alanine Aminotransfer (ALT/SGP 17.0 U/L (12-78); Albumin, Blood 2.3 g/dL (3.4-5.0); Albumin/Globulin Ratio 0.6 (0.8-1.8); Anion Gap 8.0 mmol/L (3-11); Aspartate Aminotrans (AST/SGOT 19.0 U/L (12-37); Bilirubin, Total 0.2 mg/dL (0.1-1.0); Blood Urea Nitrogen 10.0 mg/dL (8-24); CO2, Blood 25.0 mmol/L (21-32); Calcium, Blood 7.6 mg/dL (8.5-10.1); Chloride, Blood 92.0 mmol/L (98-108); Creatinine, Blood 0.58 mg/dL (0.60-1.20); Globulin, Blood 3.8 g/dL (2.2-4.0); Glucose, Blood 98.0 mg/dL (70-99); Magnesium, Blood 1.7 mg/dL (1.6-2.4); Potassium, Blood 4.3 mmol/L (3.5-5.5); Sodium, Blood 121.0 mmol/L (136-145); Total Protein, Blood 6.1 g/dL (6.4-8.2)
[2024-11-12 07:47] VITALS: BP 114/68
[2024-11-12 08:19] LABS: Anion Gap 7.0 mmol/L (3-11); Blood Urea Nitrogen 10.0 mg/dL (8-24); CO2, Blood 26.0 mmol/L (21-32); Calcium, Blood 7.8 mg/dL (8.5-10.1); Chloride, Blood 93.0 mmol/L (98-108); Creatinine, Blood 0.54 mg/dL (0.60-1.20); Glucose, Blood 93.0 mg/dL (70-99); Potassium, Blood 4.4 mmol/L (3.5-5.5); Sodium, Blood 122.0 mmol/L (136-145)
[2024-11-12] MEDS ORDERED: Enoxaparin 40 MG/0.4 ML SYR SC SCH (09:00)
[2024-11-12 11:14] VITALS: BP 128/66
[2024-11-12] MEDS ORDERED: Vancomycin (Pharmacy Consult) IV SCH (12:20)
[2024-11-12] MEDS ORDERED: CefTRIAXone Sodium 1,000 MG in NS 100 ML IV SCH (12:30)
--- NOTE | 2024-11-12 14:22 | NUR ---
THIS RN CALLED DR. MALHOTRA, NEPHROLOGY, WITH PT'S 1200 NA RESULTS. SHE STATED ON THE NEXT BLOOD DRAW AT 1800 TONIGHT, IF THE PT'S NA IS 124 OR LESS TO GIVE 500CC OF NS @ 60ML/HR AND RECHECK NA AFTER THE FLUIDS ARE COMPLETED.
--- NOTE | 2024-11-12 14:23 | NUR ---
MORNING SUMMARY THE PT IS A&OX4, CALLS APPROPRAITELY, AND MAKES HIS NEEDS KNOWN. THE PT IS A 1P SBA FOR [place]. HE HAS BEEN MEDICATED TODAY FOR PAIN IN HIS LEFT HIP PER EMAR. ON TELE THE PT HAS BEEN SR 70'S W/ PAC'S. BP STABLE. HE REMAINS ON RA AND DENIES ANY SOB. DR. CAMERON SAW THE PT TODAY AND DISCUSSED CT RESULTS. PLAN FOR THE PT TO FOLLOW UP ABOUT LUNG MASS OUTPT. THE PT WAS STARTED ON ANTIBIOTICS FOR HIS LEFT HIP CELLULITIS. DR. MALHOTRA IS MANAGING THE PT'S NA LEVELS. GOAL FOR NA TODAY IS 126-128. SEE PREVIOUS NOTE. THE PT IS TRANSFERING TO MEDICAL FLOOR WITH TELE AND WILL TRANSFER TO ROOM 332. REPORT WAS GIVEN TO PREET Clark RN.
[2024-11-12 14:56] VITALS: BP 122/70
[2024-11-12] MEDS ORDERED: NS 250 ML IV PRN (15:10)
--- NOTE | 2024-11-12 17:55 | NUR ---
ASSUMPTION OF CARE NOTE: PATIENT ARRIVES TO ROOM AT 1452 VIA WC FROM PCU RM 9. PATIENT TRANSFERRED TO BED c 1 ASSIST. PATIENT SKIN ASSESSMENT c 2 RN'S VERIFIED COMPLETED. PATIENT ORIENTATED TO ROOM AND CALL SYSTEM. PATIENT HAS HAD NO CHANGES SINCE ARRIVAL TO UNIT, NO EVENTS ON TELE, SR HR IN THE 70'S c OCCASIONAL PVC, DENIES CP/PRESSURE SOB, N/V AND DIZZINESS. PATIENT RECEIVED SCHEDULED MEDS PER EMAR, CONTINENT OF BLADDER AND USES URINAL AT BEDSIDE. VITAL SIGNS REVIEWED. PATIENT A/OX4, PLEASANT AND COOPERATIVE c CARE, CALLS APPROPRIATELY AND ABLE TO MAKE NEEDS KNOWN. BED ALARM ON FOR SAFETY D/T HX OF FALLS. CALL LIGHT IN REACH.
[2024-11-12] MEDS ORDERED: NS 500 ML IV SCH (20:10)
[2024-11-12 20:20] VITALS: BP 138/55
[2024-11-12] MEDS ORDERED: Lactobacil 2-S.Thermo-Bifido 1 1 Cap PO SCH (21:00)
[2024-11-13] VITALS (7 sets, daily range): BP systolic 105–160; BP diastolic 58–90
--- NOTE | 2024-11-13 05:14 | NUR ---
SHIFT SUMMARY PT SLEPT SHORT INTERVALS DURING THE NIGHT. 1800 SODIUM LEVEL CAME BACK AT 123. IV NS @ 60ML/HR INFUSING FOR 500ML, THEN WILL REPEAT LABS PER ORDER. PT MEDICATED FOR LLE PAIN WITH OXYCODONE PER EMAR. REDNESS REMAINS WITHIN MARKED OUTLINE. PT STATES NO VISION IN RIGHT EYE SINCE SURGERY FOR RETINAL DETACHMENT- EYEDROPS GIVEN PER ORDER. PT VOIDING PER URINAL. ABLE TO REPOSITION SELF, BUT PREFERS TO LAY ON BACK.
--- NOTE | 2024-11-13 07:28 | NUR ---
NEPHROLOGY LAB NOTIFICATION NOTE: CALLED DR. MALHOTRA (NEPHROLOGY) AT 0729 c NA 125 LAB VALUE RESULT THIS AM, RECEIVED ORDER TO INFUSE 1 BAG NS 1000 ML AT 60 MLS/HR NOW.
[2024-11-13] MEDS ORDERED: NS 1,000 ML IV SCH (07:35)
--- NOTE | 2024-11-13 15:16 | NUR ---
MET WITH PT TODAY, HE SEEMED TO ENJOY VISITING. HE STATES HE USED TO DRINK MANY KINDS OF ALCOHOL BUT NOW ONLY DRINKS BEER, AND ONLY ON THE WEEKENDS. HOWEVER, HE DOES STATE HE WILL "GET A GOOD BUZZ" ON THE WEEKENDS. HE ALSO STATES FEELING NERVOUS THAT CT SHOWS POSSIBLE CANCER, BUT WILL REQUIRE FOLLOW UP. WE DIDN'T DISCUSS CODE STATUS TODAY, MAY HAVE THE DISCUSSION TOMORROW.
--- NOTE | 2024-11-13 17:38 | NUR ---
SHIFT SUMMARY: PATIENT MEDICATED FOR LOW BACK/L HIP PAIN PER EMAR c GOOD EFFECT. PATIENT SELF ADMINISTERED SCHEDULED R EYE MEDICATION PER EMAR FOR RETINAL DETACHMENT CARE. PATIENT NA HAS SLOWLY IMPROVED, NS INFUSING TO JEREMIAS POWERGLIDE AT 60 MLS/HR PER ORDER. PATIENT DENIES CP/PRESSURE, SOB, N/V AND DIZZINESS, NO EVENTS ON TELE, SR HR IN THE 60-80'S BPM c OCCASIONAL PAC. PATIENT HAS MOD APPETITE, CONTINENT OF BAB, USES URINAL AT BEDSIDE AND AMBULATES TO BATHROOM c SBA/FWW. REDNESS TO L LATERAL LEG ABOUT THE SAME BASED ON OUTLINE MARKING. VITAL SIGNS REVIEWED. CALL LIGHT IN REACH.
[2024-11-14] VITALS (8 sets, daily range): BP systolic 126–150; BP diastolic 61–84
--- NOTE | 2024-11-14 05:16 | NUR ---
SHIFT SUMMARY PT SLEPT INTERMITTENTLY DURING THE NIGHT. 1 LITER NS COMPLETED. MIDNIGHT SODIUM CHECK= 126, 0600 CHECK TO BE COMPLETED. PT MEDICATED FOR LEFT HIP AND BACK PAIN WITH OXYCODONE PER EMAR. VOIDING PER URINAL. REPOSITIONS SELF IN BED, BUT REFUSING TO TURN ON SIDE. EYEDROPS GIVEN PER ORDER FOR DETACHED RETNA.
--- NOTE | 2024-11-14 08:47 | NUR ---
called dr Kc Pt had a 7 beat run of v-tach seen on tele. VS checked at the time of the event, pt denies cp or sob, no n/t or fluttery feeling at this time. VSS. Dr. Kc notified. No new orders at this time.
[2024-11-14] MEDS ORDERED: NEO (12:23)
[2024-11-14] MEDS ORDERED: POLY (12:23)
[2024-11-14] MEDS ORDERED: DEX (12:23)
[2024-11-14 12:46] LABS: Sodium, Blood 125 mmol/L (136-145); Vancomycin, Trough 24.2 ug/mL (5.0-10.0)
--- NOTE | 2024-11-14 19:15 | NUR ---
SHIFT SUMMARY- PT ALLERT AND ORIENTED 1PA WITH AMBULATION TO THE BATHROOM. HE HAS HAD SOME LOOSE STOOLS, T/O TODAY. HE HAD A 7 BEAT RUN OF V-TACH TODAY. DR DELONG NOTIFIED, NO NEW ORDERS. DR BREWER CAME TO SEE THE PT TONIGHT AND URINE SAMPLE WAS COLLECTED AND SENT TO THE LAB. PT IN BED, CALL LIGHT IN REACH NO S&S OF DISTRESS NOTED AT THE TIME OF BEDSIDE REPORT.
[2024-11-15 04:41] VITALS: BP 135/71
--- NOTE | 2024-11-15 04:54 | NUR ---
PT A&O X4, VS WNL, PO INTAKE WNL, OUTPUT ABOVE AVERAGE. PT WITH PAIN IN LEFT LEG, NEW ORDER FOR 1-2 OXYCODONE ENTERED. TELE NSR IN 'S. CURRENTLY USING OWN EYE GTTS D/T WHEN DONE THEN THEY ARE TO BE D/C. URINE SODIUM STILL LOW IS BLOOD LEVELS, WILL CONTINUE TO MONITOR. PLAN TO D/C HOME WITH HH. USES CALL SYSTEM APPROPRIATELY.
[2024-11-15 05:55] LABS: IMMATURE RETIC FRACTION 8.6 % (2.3-16.0); RETIC HGB EQUIVALENT 33.5 pg (28.20-36.60); RETICULOCYTE ABSOLUTE 0.0404 M/mm3 (0.0200-0.1100); RETICULOCYTE COUNT PERCENT 1.74 % (0.50-2.50)
[2024-11-15 06:50] LABS: Albumin, Blood 2.3 g/dL (3.4-5.0); Anion Gap 8 mmol/L (3-11); Blood Urea Nitrogen 8 mg/dL (8-24); CO2, Blood 26 mmol/L (21-32); Calcium, Blood 7.9 mg/dL (8.5-10.1); Chloride, Blood 96 mmol/L (98-108); Creatinine, Blood 0.53 mg/dL (0.60-1.20); Glucose, Blood 100 mg/dL (70-99); Magnesium, Blood 1.7 mg/dL (1.6-2.4); Phosphorus, Blood 3.6 mg/dL (2.5-4.9); Potassium, Blood 4.2 mmol/L (3.5-5.5); Sodium, Blood 126 mmol/L (136-145); Total Iron Binding Capacity 226 ug/dL (250-450)
[2024-11-15 07:23] VITALS: BP 120/70
[2024-11-15 11:36] VITALS: BP 117/68
[2024-11-15 15:56] VITALS: BP 157/74
--- NOTE | 2024-11-15 19:36 | NUR ---
SHIFT SUMMARY- PT STATED HE IS FEELING BETTER TODAY, THE PAIN HAS IMPROVED IN THE HIP. HIS BIGGEST QUESTION TODAY WAS, "WHAT IS THE PLAN?" AND "WHEN DO I GET TO GO HOME?" DR GREY AND DR DELONG CAME TO SEE THE PT THIS EVENING, IT SEEMS THE PLAN IS TO DC HIM HOME TOMORROW, IF HIS SODIUM LEVELS HOLD. BEDSIDE REPORT COMPLETED WITH RAFIQ NAJERA, NO S&S OF DISTRESS NOTED AT THE TIME OF REPORT. 1800 LASIX NOT YET GIVEN, NIGHT RN AWARE AND WILL ADMINISTER.
[2024-11-15 20:12] VITALS: BP 129/67
[2024-11-16] VITALS (7 sets, daily range): BP systolic 122–138; BP diastolic 60–80
[2024-11-16 06:08] LABS: Albumin, Blood 2.4 g/dL (3.4-5.0); Anion Gap 8 mmol/L (3-11); Blood Urea Nitrogen 8 mg/dL (8-24); CO2, Blood 27 mmol/L (21-32); Calcium, Blood 7.8 mg/dL (8.5-10.1); Chloride, Blood 95 mmol/L (98-108); Creatinine, Blood 0.60 mg/dL (0.60-1.20); Glucose, Blood 95 mg/dL (70-99); Phosphorus, Blood 3.4 mg/dL (2.5-4.9); Potassium, Blood 3.4 mmol/L (3.5-5.5); Sodium, Blood 127 mmol/L (136-145)
--- NOTE | 2024-11-16 06:54 | NUR ---
SHIFT SUMMARY PT RESTED WELL THROUGH SHIFT OCCASSIONALLY DRIFTING OFF TO SLEEP FOR AN HOUR OR LESS. PT ABLE TO AMBULATE ON HIS OWN TO BATHROOM PRN TO VOID. PT ALSO HAD SEVERAL SMALL BM THROUGH NIGHT. HE HAS BEEN PLEASANT AND COOPERATIVE WITH HIS CARE. PT MEDICATED FOR PAIN 3X THROUGH SHIFT.
[2024-11-16] MEDS ORDERED: Potassium Chloride 10 Meq Tablet SA PO SCH (08:00)
--- NOTE | 2024-11-16 13:46 | NUR ---
CALLED DR GREY- HAD TOLD THE PT HE COULD GO HOME TODAY. POO LASIX DOSE WAS CHANGE TO 10MG FROM 20 MG. CALLED TO CLARIFY IF THE PT IS STILL SUPPOSED TO BE DC'D HOME. PER DR GREY, THE PT IS "CLEARED TO GO HOME FROM MY STANDPOINT." HE DID ORDER A OT ADDITIONAL DOSE OF [POTASSIUM TO BE GIVEN BEFORE HE LEAVES.
--- NOTE | 2024-11-16 13:48 | NUR ---
CALLED DR DELONG- THE PT HAS BEEN ANXIOUSLY AWAITING HIS DISCHARGE. CALLED DR GREY WHO CLEARED THE PT FOR DC HOME TODAY. CALLED DR DELONG TO DISCUSS THE DISCHARGE PLAN. WILL COME TO SEE THE PT AFTER 5PM. HE ASKED FOR A REPEAT SODIUM LAB AT 1600, IF THE NUMBER STAYS THE SAME HE WILL DC THE PT.
--- NOTE | 2024-11-16 19:42 | NUR ---
SHIFT SUMMARY- DR DELONG CAME TO SEE THE PT THIS EVENING AND EXPLAINED WHY HE IS NOT DISCHARGING HIM HOME TONIGHT PLANNED. THE HOPE IS FOR HIM TO GO HOME TOMORROW IF THE SODIUM STAYS STABLE. PT IN BED, CALL LIGHT IN REACH AT THE TIME OF BEDSIDE REPORT. PAIN MEDS GIVEN PRIOR TO SHIFT CHANGE. NO S&S OF DISTRESS NOTED AT THE TIME OF REPORT.
[2024-11-17 00:23] VITALS: BP 142/86
[2024-11-17 04:48] VITALS: BP 132/82
--- NOTE | 2024-11-17 05:01 | NUR ---
RN SANE SUMMARY PT A&OX4, VSS, EXCEPT SLIGHTLY ELEVATED BP. PT HAS BEEN COOPERATIVE WITH CARE AND USES CALL LIGHT APPROPRIATELY TO VOICE NEEDS OR ASK FOR SBA TO RESTROOM. PT HAS BEEN ASLEEP FOR THE GREATER HALF OF THE SHIFT. INTERMITTENTLY WAKES UP IN PAIN AND WILL ASK FOR PAIN MEDS. VOICED NEED FOR BETTER PAIN CONTROL EARLY IN THE NIGHT. ORDER OBTAINED TO CHANGE OXYCODONE DOSE TO 5 MG Q2 PRN. PT STATES THIS HAS WORKED A LOT BETTER FOR PAIN MANAGEMENT. OXY GIVEN 3 X AT THE TIME OF THIS NOTE. INCISION FROM RECENT HIP SURGERY REMAINS SLIGHTLY RED AND WARM, BUT SKIN IS SOFT AND PT DENIES ANY TENDERNESS DIRECTLY AT SITE. PT REMAINS ON TELE. SINUS ARRYTHMIA W/ BBB AT 93. PLAN PER MD IS DISCHARGE IF NEW LABS DO NOT SHOW A DROP IN SODIUM LEVELS BELOW 126. BED RAILS UP X 2, BED IN LOWEST POSITION, BED WHEELS LOCKED, PERSONAL BELONGINGS AND CALL LIGHT WITHIN REACH FOR SAFETY.
[2024-11-17 06:51] LABS: Albumin, Blood 2.4 g/dL (3.4-5.0); Anion Gap 9 mmol/L (3-11); Blood Urea Nitrogen 7 mg/dL (8-24); CO2, Blood 26 mmol/L (21-32); Calcium, Blood 7.6 mg/dL (8.5-10.1); Chloride, Blood 95 mmol/L (98-108); Creatinine, Blood 0.54 mg/dL (0.60-1.20); Glucose, Blood 99 mg/dL (70-99); Phosphorus, Blood 3.3 mg/dL (2.5-4.9); Potassium, Blood 3.7 mmol/L (3.5-5.5); Sodium, Blood 126 mmol/L (136-145)
[2024-11-17 07:25] VITALS: BP 119/63
[2024-11-17 10:37] VITALS: BP 124/60
[2024-11-17] MEDS ORDERED: POTA10T PO (10:48)
[2024-11-17] MEDS ORDERED: FURO20 PO (10:48)
--- NOTE | 2024-11-17 11:40 | NUR ---
PT DISCHARGED TO HOME. DISCHARGE INSTRUCTIONS PROVIDED AND EDUCATED ON AT TIME OF DISCHARGE. ALL VALUABLES RETURNED AND SENT HOME WITH THE PT. MEDICATIONS FAXED TO [facility] ON [address].
== END 2024-11-17 12:59 | disposition home or self-care (01) | DRG 644 ==
LOC: PCU 10:02 → MEDS 11-12 14:50
PROVIDERS: Hospitalist; ADMIT Internal Medicine
DX: E22.2 Syndrome of inappropriate secretion of antidiuretic hormone (principal); E46 Unspecified protein-calorie malnutrition; L03.116 Cellulitis of left lower limb; Z68.1 Body mass index [BMI] 19.9 or less, adult; J44.9 Chronic obstructive pulmonary disease, unspecified; Z66 Do not resuscitate; F17.200 Nicotine dependence, unspecified, uncomplicated; F10.90 Alcohol use, unspecified, uncomplicated; G89.29 Other chronic pain; D64.9 Anemia, unspecified; R91.8 Other nonspecific abnormal finding of lung field; Z96.643 Presence of artificial hip joint, bilateral; Z60.2 Problems related to living alone; Z88.5 Allergy status to narcotic agent; Z79.891 Long term (current) use of opiate analgesic; Z79.1 Long term (current) use of non-steroidal anti-inflammatories (NSAID)
CPT/HCPCS: 36415; 71260; 73700; 80048; 80053; 80069; 80202; 82570; 83540; 83550; 83735; 83930; 83935; 84100; 84295; 84300; 85025; 85045; A9270; C1751; J0696; J1650; J3373; J7030; J7040; J7050; Q9967

== ENCOUNTER 2024-12-02 08:42 | Day surgery (SDC) | payer MEDICARE ==
[~2024-12-02] VITALS: Ht 185.4 cm; Wt 57.2 kg
[~2024-12-02 08:42] MED LIST changes: +ALBU2.5V5 INH; +DEX; +FURO20 PO; +MISCSOL; +NEO; +NS 0 ML IV ONE; +POLY; +POLYMYXIN B-TMP10 ML RIGHTEYE; +POTA10T PO; +PRED FORTE5 ML RIGHTEYE
[2024-12-02] MEDS ORDERED: Bupivacaine 0.5% W/EPI 1:200000 SDV 10ML XX ONE (10:53)
--- NOTE | 2024-12-02 11:16 | NUR ---
12/02/24 1116 TERESITA LEON PT HAD NA LAB REDRAWN D/T LOW VALUE PRIOR TO PROCEDURE IN PRE OP LABS. PT REDRAW LAB VALUE WAS 121. PER ANES REVIEW IT WAS OK TO PROCEED W/CASE IF NA WAS [address] APONTE CONSULTED MORNING OF AND WOULD LIKE TO CANCEL THE PROCEDURE THIS IS A CRITICAL LOW VALUE OF SODIUM. PT PREVIOUSLY SEEN IN ER D/T LAB VALUE OF 126. DR. APONTE CANCELED CASE D/T RISK. DR. MARR REQUESTS WE PROCEED UNDER LOCAL ONLY, W/IV PROPHYLACTICALLY PLACED PER FACILITY POLICY, D/T URGENT NEED TO DETERMINE IF INFECTION IS PRESENT. PT BROUGHT BACK TO PRE OP, ADMIT NORMAL. PT BACK TO OR W/LOCAL ONLY. DISCUSSED CASE W/DR. MARR AND DR. APONTE TO PT'S FOLLOW UP D/T CRITICAL LAB VALUE AND RISKS ASSOCIATED. DR. MARR ASKED I REFER TO DR. APONTE ; DR. APONTE WAS CONSULTED AND ADVISED PT WOULD BE WELL SUITED TO BE EDUCATED THAT IT WOULD BE BEST TO BE SEEN IN ER FOR FOLLOW UP OR WITH PRIMARY URGENTLY. I SPOKE WITH DANIA MCPHERSON WHO IS RECOVERING PT IN SDU. SHE IS AWARE OF PT HX AND NO FLUIDS D/T LAB VALUES. SHE WAS ALSO ADVISED OF DR. APONTE'S RECOMMENDATION TO EDUCATE PT ON RISKS ASSOCIATED WITH LOW LAB VALUE AND THAT HE SHOULD BE SEEN BY PRIMARY OR ER FOR URGENT ASSESSMENT AND INTERVENTION TODAY. PT TO BE ESCORTED TO ER VIA WC. PLEASE SEE DANIA MCPHERSON'S DOCUMENTATION FOR CONT FOLLOW UP.
--- NOTE | 2024-12-02 13:47 | NUR ---
12/02/24 1347 Teofilo Wilcox PT REPORTED 7/10 PAIN IN SDU (FLACC 0-2/10). PT STATED HE WOULD NORMALLY TAKE MEDICATION FOR THIS LEVEL OF PAIN, BUT ALSO STATED THAT CURRENT PAIN LEVEL IS SIMILAR TO HIS BASELINE. PT WAS NOTED TO BE HYPONATREMIC PRIOR TO PROCEDURE. HE AGREED TO FOLLOW UP IN EMERGENCY DEPARTMENT REGARDING HYPONATREMIA. AN ORDER WAS OBTAINED FROM DR. LYMAN TO D/C WITH IV IN PLACE AND HEPARIN LOCKED. PT WAS TAKEN TO ED BY RN AND REGISTERED IN ED WITH IV IN PLACE AFTER D/C FROM [facility].
== END 2024-12-02 12:20 | disposition home or self-care (01) ==
LOC: ORSCSDS 08:42
PROVIDERS: Orthopaedic Surgery
PROC: 0S9B3ZZ Drainage of Left Hip Joint, Percutaneous Approach (ICD-10-PCS; principal; 2024-12-02 10:30)
DX: M25.552 Pain in left hip (principal); Z96.642 Presence of left artificial hip joint
CPT/HCPCS: 87070; 87075; 87076; 87205; J2003; J7040

== ENCOUNTER 2024-12-02 12:17 | Inpatient (IN) | payer MEDICARE ==
[~2024-12-02] VITALS: Ht 185.4 cm; Wt 58.2 kg
[~2024-12-02 12:17] MED LIST changes: -NS 0 ML IV ONE
[2024-12-02 13:05] LABS: BASOPHILS ABSOLUTE AUTO 0.01 K/mm3 (0.00-0.23); BASOPHILS PERCENT AUTO 0 % (0-2); EOSINOPHILS ABSOLUTE AUTO 0.01 K/mm3 (0.00-0.68); EOSINOPHILS PERCENT AUTO 0 % (0-6); Hematocrit 25.6 % (37.0-53.0); Hemoglobin 8.8 g/dL (13.5-17.5); IMMATURE GRAN ABSOLUTE AUTO 0.02 K/mm3 (0.00-0.10); IMMATURE GRAN PERCENT AUTO 0 % (0-1); LYMPHOCYTES ABSOLUTE AUTO 0.70 K/mm3 (0.84-5.20); LYMPHOCYTES PERCENT AUTO 15 % (21-46); MONOCYTES ABSOLUTE AUTO 0.52 K/mm3 (0.16-1.47); MONOCYTES PERCENT AUTO 11 % (4-13); Mean Corpuscular HGB Conc 34.4 g/dL (31.5-36.5); Mean Corpuscular Volume 94 fL (80-100); NEUTROPHILS ABSOLUTE AUTO 3.32 K/mm3 (1.96-9.15); NEUTROPHILS PERCENT AUTO 73 % (41-73); NRBC ABSOLUTE 0.00 K/mm3 (0.00-0.02); NRBC Auto 0.0 /100 WBC (0.0-0.2); Platelet Count 226 K/mm3 (150-400); RDW Coefficient Variation 14.0 % (11.7-14.2); RDW Standard Deviation 48.4 fL (35.1-46.3)
[2024-12-02 13:42] LABS: Alanine Aminotransfer (ALT/SGP 17.0 U/L (12-78); Albumin, Blood 3.0 g/dL (3.4-5.0); Albumin/Globulin Ratio 0.7 (0.8-1.8); Anion Gap 8.0 mmol/L (3-11); Aspartate Aminotrans (AST/SGOT 27.0 U/L (12-37); Bilirubin, Total 0.4 mg/dL (0.1-1.0); Blood Urea Nitrogen 9.0 mg/dL (8-24); CO2, Blood 23.0 mmol/L (21-32); Calcium, Blood 8.5 mg/dL (8.5-10.1); Chloride, Blood 90.0 mmol/L (98-108); Creatinine, Blood 0.53 mg/dL (0.60-1.20); Globulin, Blood 4.3 g/dL (2.2-4.0); Glucose, Blood 120.0 mg/dL (70-99); Potassium, Blood 3.2 mmol/L (3.5-5.5); Sodium, Blood 118.0 mmol/L (136-145); Total Protein, Blood 7.3 g/dL (6.4-8.2)
[2024-12-02] MEDS ORDERED: NS 1,000 ML IV SCH (15:45)
[2024-12-02] MEDS ORDERED: Ondansetron HCl 2 MG / ML 2ML Vial IV PRN (15:45)
[2024-12-02 16:15] LABS: Source, Urine Clean Catch
[2024-12-02 16:26] LABS: Bilirubin, Urine Neg (Neg); Color, Urine Yellow (P-Yellow); Glucose Qualitative, Urine Neg (Neg); Ketones, Urine Neg (Neg); Leukocyte Esterase, Urine Neg (Neg); Protein, Urine Neg (Neg); Specific Gravity, Urine 1.010 (1.003-1.022); Urobilinogen, Urine NORM (Normal)
[2024-12-02 16:51] LABS: White Blood Cells, Urine 0-2 /hpf (0-5)
[2024-12-02] MEDS ORDERED: NS 1,000 ML IV ONE (16:59)
[2024-12-02 19:21] LABS: Anion Gap 9.0 mmol/L (3-11); Blood Urea Nitrogen 9.0 mg/dL (8-24); CO2, Blood 26.0 mmol/L (21-32); Calcium, Blood 7.9 mg/dL (8.5-10.1); Chloride, Blood 90.0 mmol/L (98-108); Creatinine, Blood 0.64 mg/dL (0.60-1.20); Glucose, Blood 111.0 mg/dL (70-99); Potassium, Blood 3.5 mmol/L (3.5-5.5); Sodium, Blood 121.0 mmol/L (136-145)
[2024-12-02] MEDS ORDERED: OxyCODONE 5 mg/Acetamin 325 mg TABLET PO PRN (20:00)
[2024-12-02 22:10] VITALS: BP 110/77
[2024-12-02 22:42] LABS: Anion Gap 9.0 mmol/L (3-11); Blood Urea Nitrogen 9.0 mg/dL (8-24); CO2, Blood 25.0 mmol/L (21-32); Calcium, Blood 7.9 mg/dL (8.5-10.1); Chloride, Blood 92.0 mmol/L (98-108); Creatinine, Blood 0.65 mg/dL (0.60-1.20); Glucose, Blood 106.0 mg/dL (70-99); Potassium, Blood 3.9 mmol/L (3.5-5.5); Sodium, Blood 122.0 mmol/L (136-145)
[2024-12-03 02:54] LABS: Anion Gap 10.0 mmol/L (3-11); Blood Urea Nitrogen 10.0 mg/dL (8-24); CO2, Blood 25.0 mmol/L (21-32); Calcium, Blood 7.4 mg/dL (8.5-10.1); Chloride, Blood 93.0 mmol/L (98-108); Creatinine, Blood 0.63 mg/dL (0.60-1.20); Glucose, Blood 98.0 mg/dL (70-99); Potassium, Blood 3.5 mmol/L (3.5-5.5); Sodium, Blood 124.0 mmol/L (136-145)
--- NOTE | 2024-12-03 04:24 | NUR ---
SHIFT SUMMARY PT ER ADMIT FOR HYPONATREMIA, NA UP TO 124 THIS AM. PT HAS BEEN ASYMPTOMATIC. NSR ON TELE. PT S/P LEFT HIP BIOPSY, SITE WNL. ADMISSION COMPLETE. PT A/OX4, MAKES NEEDS KNOWN. IVF INFUSING. BED IN LOWEST POSITION, CALL LIGHT WITHIN REACH.
[2024-12-03 04:27] VITALS: BP 126/71
[2024-12-03 07:16] VITALS: BP 133/73
[2024-12-03 07:38] LABS: BASOPHILS ABSOLUTE AUTO 0.01 K/mm3 (0.00-0.23); BASOPHILS PERCENT AUTO 0 % (0-2); EOSINOPHILS ABSOLUTE AUTO 0.06 K/mm3 (0.00-0.68); EOSINOPHILS PERCENT AUTO 2 % (0-6); Hematocrit 22.3 % (37.0-53.0); Hemoglobin 7.7 g/dL (13.5-17.5); IMMATURE GRAN ABSOLUTE AUTO 0.00 K/mm3 (0.00-0.10); IMMATURE GRAN PERCENT AUTO 0 % (0-1); LYMPHOCYTES ABSOLUTE AUTO 0.71 K/mm3 (0.84-5.20); LYMPHOCYTES PERCENT AUTO 24 % (21-46); MONOCYTES ABSOLUTE AUTO 0.48 K/mm3 (0.16-1.47); MONOCYTES PERCENT AUTO 16 % (4-13); Mean Corpuscular HGB Conc 34.5 g/dL (31.5-36.5); Mean Corpuscular Volume 93 fL (80-100); NEUTROPHILS ABSOLUTE AUTO 1.76 K/mm3 (1.96-9.15); NEUTROPHILS PERCENT AUTO 58 % (41-73); NRBC ABSOLUTE 0.00 K/mm3 (0.00-0.02); NRBC Auto 0.0 /100 WBC (0.0-0.2); Platelet Count 185 K/mm3 (150-400); RDW Coefficient Variation 13.8 % (11.7-14.2); RDW Standard Deviation 47.4 fL (35.1-46.3)
[2024-12-03 08:05] LABS: Alanine Aminotransfer (ALT/SGP 15.0 U/L (12-78); Albumin, Blood 2.5 g/dL (3.4-5.0); Albumin/Globulin Ratio 0.7 (0.8-1.8); Anion Gap 9.0 mmol/L (3-11); Aspartate Aminotrans (AST/SGOT 24.0 U/L (12-37); Bilirubin, Total 0.3 mg/dL (0.1-1.0); Blood Urea Nitrogen 9.0 mg/dL (8-24); CO2, Blood 23.0 mmol/L (21-32); Calcium, Blood 7.8 mg/dL (8.5-10.1); Chloride, Blood 93.0 mmol/L (98-108); Creatinine, Blood 0.53 mg/dL (0.60-1.20); Ferritin, Serum 183.0 ng/mL (26-388); Globulin, Blood 3.6 g/dL (2.2-4.0); Glucose, Blood 108.0 mg/dL (70-99); Potassium, Blood 3.6 mmol/L (3.5-5.5); Sodium, Blood 121.0 mmol/L (136-145); Total Iron Binding Capacity 225.0 ug/dL (250-450); Total Protein, Blood 6.1 g/dL (6.4-8.2)
[2024-12-03] MEDS ORDERED: Enoxaparin 40 MG/0.4 ML SYR SC SCH (09:00)
[2024-12-03] MEDS ORDERED: OxyCODONE 10/Acetamin 325 TABLET PO PRN (10:20)
[2024-12-03 15:04] VITALS: BP 124/79
--- NOTE | 2024-12-03 16:56 | NUR ---
summary NO ACUTE CHANGES THIS SHIFT. VSS. AXO4. FLUIDS INFUSING @50MLS/HR, MONITORING NA LABS. REMAINS IN SR PER ERGONOMIST. L HIP PAIN REMAINS, HIGHER DOSE OF PAIN MED ORDERED, PT STATES IT JUST MADE HIM "SLEEPY" AND SAID HE REALLY THINKS HE WILL NOT TAKE ANYMORE OF IT AND STATES THE PAIN IS TOLERABLE, PT MADE ARE THE MEDICATION CAN BE CHANGED, STATES UNDERSTANDING. TOLERATING PO INTAKE WELL. PT HOPEFUL FOR DISCHARGING TOMORROW.
[2024-12-03 19:21] LABS: Anion Gap 10.0 mmol/L (3-11); Blood Urea Nitrogen 10.0 mg/dL (8-24); CO2, Blood 26.0 mmol/L (21-32); Calcium, Blood 7.9 mg/dL (8.5-10.1); Chloride, Blood 93.0 mmol/L (98-108); Creatinine, Blood 0.63 mg/dL (0.60-1.20); Glucose, Blood 90.0 mg/dL (70-99); Potassium, Blood 3.5 mmol/L (3.5-5.5); Sodium, Blood 125.0 mmol/L (136-145)
[2024-12-03 19:49] VITALS: BP 115/59
[2024-12-03] MEDS ORDERED: Albuterol 2.5 MG/3 ML VIAL INH PRN (21:00)
[2024-12-03] MEDS ORDERED: Potassium Chloride 10 Meq Tablet SA PO SCH (21:00)
[2024-12-03 23:43] VITALS: BP 119/69
[2024-12-04 04:50] VITALS: BP 128/59
[2024-12-04 05:05] LABS: Hematocrit 22.9 % (37.0-53.0); Hemoglobin 8.0 g/dL (13.5-17.5); Mean Corpuscular HGB Conc 34.9 g/dL (31.5-36.5); Mean Corpuscular Volume 93 fL (80-100); NRBC ABSOLUTE 0.00 K/mm3 (0.00-0.02); NRBC Auto 0.0 /100 WBC (0.0-0.2); Platelet Count 210 K/mm3 (150-400); RDW Coefficient Variation 13.9 % (11.7-14.2); RDW Standard Deviation 46.9 fL (35.1-46.3)
[2024-12-04 05:34] LABS: Alanine Aminotransfer (ALT/SGP 17.0 U/L (12-78); Albumin, Blood 2.5 g/dL (3.4-5.0); Albumin/Globulin Ratio 0.6 (0.8-1.8); Anion Gap 10.0 mmol/L (3-11); Aspartate Aminotrans (AST/SGOT 27.0 U/L (12-37); Bilirubin, Total 0.2 mg/dL (0.1-1.0); Blood Urea Nitrogen 10.0 mg/dL (8-24); CO2, Blood 25.0 mmol/L (21-32); Calcium, Blood 7.9 mg/dL (8.5-10.1); Chloride, Blood 92.0 mmol/L (98-108); Creatinine, Blood 0.67 mg/dL (0.60-1.20); Globulin, Blood 3.9 g/dL (2.2-4.0); Glucose, Blood 93.0 mg/dL (70-99); Potassium, Blood 3.6 mmol/L (3.5-5.5); Sodium, Blood 123.0 mmol/L (136-145); Total Protein, Blood 6.4 g/dL (6.4-8.2)
--- NOTE | 2024-12-04 06:24 | NUR ---
SHIFT SUMMARY NO ACUTE CHANGES TO REPORT OVERNIGHT. PT HAS RESTED T/O THE NIGHT, REPORTS SOME PAIN IN HIS LEFT HIP BUT DECLINES PAIN MEDICATION. PT HYPONATREMIA IS BEING TREATED PER ORDERS. VITALS STABLE, PLAN OF CARE REMAINS UNCHANGED. BED IN LOWEST POSITION, CALL LIGHT WITHIN REACH.
[2024-12-04 07:05] LABS: BASOPHILS ABSOLUTE MAN 0.03 K/mm3 (0.00-0.23); BASOPHILS PERCENT MAN 1 % (0-2); EOSINOPHILS ABSOLUTE MAN 0.10 K/mm3 (0.00-0.68); EOSINOPHILS PERCENT MAN 3 % (0-6); LYMPHOCYTES ABSOLUTE MAN 0.70 K/mm3 (0.84-5.20); LYMPHOCYTES PERCENT MAN 21 % (21-46); MONOCYTES ABSOLUTE MAN 0.43 K/mm3 (0.16-1.47); MONOCYTES PERCENT MAN 13 % (4-13); NEUTROPHILS ABSOLUTE MAN 2.09 K/mm3 (1.96-9.15); SEG NEUTROPHILS PERCENT MAN 62 % (41-73)
[2024-12-04 07:19] VITALS: BP 120/65
[2024-12-04] MEDS ORDERED: Sod Ferric Gluc Complx/Sucrose 125 MG in NS 100 ML IV SCH (09:00)
[2024-12-04] MEDS ORDERED: PERCOCET 10-321 EA13 PO (12:17)
--- NOTE | 2024-12-04 12:53 | NUR ---
ASSUMPTION ASUMED CARE OF PT @0700. AXO4. VSS. STATES PAIN MEDS HAVE ALLEVIATED SOME OF HIS HIP PAIN BUT STILL IS HESITANT AT TIMES WITH TAKING THEM. TOLERATING PO SALT TABS WELL. DIURESING WELL. DR FAROOQ ASSESSED PT, STATES PT CAN DC TODAY. ORDERS RECEIVED. POST ASSUMPTION, NO ACUTE CHANGES. AWAITING PT RIDE AND THEN WILL COMPLETE DC.
--- NOTE | 2024-12-04 13:37 | NUR ---
DC'D@1310 NO ACUTE CHANGES POST ASSUMPTION NOTE. PT EDUCATED WITH DC INSTRUCTIONS WITH FAMILY IN ROOM. MEDICATIONS SENT TO PATIENTS PHARMACY. PT GIVEN ONE MORE NACL TAB PRE DC. VSS. IV PULLED. PT WHEELED OUT OF ROOM WITH FAMILY VIA WHEELCHAIR WITH BELONGINGS.
== END 2024-12-04 13:30 | disposition home or self-care (01) | DRG 644 ==
LOC: ER 12:17 → SURS 15:40 → MEDS 15:40 → SURS 22:01
PROVIDERS: Physician Assistant; ADMIT Hospitalist
DX: E22.2 Syndrome of inappropriate secretion of antidiuretic hormone (principal); C34.91 Malignant neoplasm of unspecified part of right bronchus or lung; D50.9 Iron deficiency anemia, unspecified; Z66 Do not resuscitate; J44.9 Chronic obstructive pulmonary disease, unspecified; M25.552 Pain in left hip; F17.200 Nicotine dependence, unspecified, uncomplicated; M54.10 Radiculopathy, site unspecified; Z96.642 Presence of left artificial hip joint; Z91.148 Patient's other noncompliance with medication regimen for other reason; Z88.5 Allergy status to narcotic agent
CPT/HCPCS: 36415; 73502; 80048; 80053; 81001; 82436; 82607; 82728; 82746; 83540; 83550; 83935; 84300; 85025; 87070; 87075; 87076; 87205; 93005; 93010; 99284-25; A9270; J1650; J2003; J2916; J7030; J7040

== ENCOUNTER 2025-01-18 12:43 | Emergency (ER) | payer MEDICARE ==
[~2025-01-18] VITALS: Ht 185.4 cm; Wt 61.2 kg
[~2025-01-18 12:43] MED LIST changes: +PERCOCET 10-321 EA13 PO
[2025-01-18 13:25] LABS: BASOPHILS ABSOLUTE AUTO 0.01 K/mm3 (0.00-0.23); BASOPHILS PERCENT AUTO 0 % (0-2); EOSINOPHILS ABSOLUTE AUTO 0.01 K/mm3 (0.00-0.68); EOSINOPHILS PERCENT AUTO 0 % (0-6); Hematocrit 27.1 % (37.0-53.0); Hemoglobin 9.7 g/dL (13.5-17.5); IMMATURE GRAN ABSOLUTE AUTO 0.02 K/mm3 (0.00-0.10); IMMATURE GRAN PERCENT AUTO 0 % (0-1); LYMPHOCYTES ABSOLUTE AUTO 0.63 K/mm3 (0.84-5.20); LYMPHOCYTES PERCENT AUTO 12 % (21-46); MONOCYTES ABSOLUTE AUTO 0.87 K/mm3 (0.16-1.47); MONOCYTES PERCENT AUTO 17 % (4-13); Mean Corpuscular HGB Conc 35.8 g/dL (31.5-36.5); Mean Corpuscular Volume 90 fL (80-100); NEUTROPHILS ABSOLUTE AUTO 3.73 K/mm3 (1.96-9.15); NEUTROPHILS PERCENT AUTO 71 % (41-73); NRBC ABSOLUTE 0.00 K/mm3 (0.00-0.02); NRBC Auto 0.0 /100 WBC (0.0-0.2); Platelet Count 230 K/mm3 (150-400); RDW Coefficient Variation 17.0 % (11.7-14.2); RDW Standard Deviation 55.8 fL (35.1-46.3)
[2025-01-18 13:50] LABS: Alanine Aminotransfer (ALT/SGP 20.0 U/L (12-78); Albumin, Blood 3.0 g/dL (3.4-5.0); Albumin/Globulin Ratio 0.7 (0.8-1.8); Anion Gap 10.0 mmol/L (3-11); Aspartate Aminotrans (AST/SGOT 40.0 U/L (12-37); Bilirubin, Total 0.8 mg/dL (0.1-1.0); Blood Urea Nitrogen 10.0 mg/dL (8-24); CO2, Blood 27.0 mmol/L (21-32); Calcium, Blood 8.6 mg/dL (8.5-10.1); Chloride, Blood 90.0 mmol/L (98-108); Creatinine, Blood 0.55 mg/dL (0.60-1.20); Globulin, Blood 4.5 g/dL (2.2-4.0); Glucose, Blood 113.0 mg/dL (70-99); Potassium, Blood 4.1 mmol/L (3.5-5.5); Sodium, Blood 123.0 mmol/L (136-145); Total Protein, Blood 7.5 g/dL (6.4-8.2)
[2025-01-18] MEDS ORDERED: NS 1,000 ML IV SCH (18:10)
== END 2025-01-18 20:08 | disposition home or self-care (01) ==
LOC: ER 12:43
PROVIDERS: Physician Assistant
DX: E87.1 Hypo-osmolality and hyponatremia (principal); Z59.89 Other problems related to housing and economic circumstances; Z91.048 Other nonmedicinal substance allergy status; Z88.5 Allergy status to narcotic agent; Z79.899 Other long term (current) drug therapy
CPT/HCPCS: 80053; 85025; 93005; 93010; 99283-25; J7030

== ENCOUNTER 2025-01-20 14:28 | Inpatient (IN) | payer MEDICARE ==
[~2025-01-20] VITALS: Ht 185.4 cm; Wt 54.5 kg
[2025-01-20 15:05] LABS: BASOPHILS ABSOLUTE AUTO 0.02 K/mm3 (0.00-0.23); BASOPHILS PERCENT AUTO 0 % (0-2); EOSINOPHILS ABSOLUTE AUTO 0.05 K/mm3 (0.00-0.68); EOSINOPHILS PERCENT AUTO 1 % (0-6); Hematocrit 27.6 % (37.0-53.0); Hemoglobin 9.9 g/dL (13.5-17.5); IMMATURE GRAN ABSOLUTE AUTO 0.02 K/mm3 (0.00-0.10); IMMATURE GRAN PERCENT AUTO 0 % (0-1); LYMPHOCYTES ABSOLUTE AUTO 0.84 K/mm3 (0.84-5.20); LYMPHOCYTES PERCENT AUTO 13 % (21-46); MONOCYTES ABSOLUTE AUTO 0.73 K/mm3 (0.16-1.47); MONOCYTES PERCENT AUTO 11 % (4-13); Mean Corpuscular HGB Conc 35.9 g/dL (31.5-36.5); Mean Corpuscular Volume 90 fL (80-100); NEUTROPHILS ABSOLUTE AUTO 4.86 K/mm3 (1.96-9.15); NEUTROPHILS PERCENT AUTO 75 % (41-73); NRBC ABSOLUTE 0.00 K/mm3 (0.00-0.02); NRBC Auto 0.0 /100 WBC (0.0-0.2); Platelet Count 214 K/mm3 (150-400); RDW Coefficient Variation 17.0 % (11.7-14.2); RDW Standard Deviation 56.4 fL (35.1-46.3)
[2025-01-20 15:34] LABS: Source, Urine Clean Catch
[2025-01-20 15:51] LABS: Bilirubin, Urine Neg (Neg); Glucose Qualitative, Urine Neg (Neg); Ketones, Urine Neg (Neg); Leukocyte Esterase, Urine Neg (Neg); Protein, Urine Neg (Neg); Specific Gravity, Urine 1.010 (1.003-1.022); Urobilinogen, Urine NORM (Normal)
[2025-01-20 16:15] LABS: Alanine Aminotransfer (ALT/SGP 21.0 U/L (12-78); Albumin, Blood 2.9 g/dL (3.4-5.0); Albumin/Globulin Ratio 0.7 (0.8-1.8); Anion Gap 13.0 mmol/L (3-11); Aspartate Aminotrans (AST/SGOT 44.0 U/L (12-37); Bilirubin, Total 0.2 mg/dL (0.1-1.0); Blood Urea Nitrogen 5.0 mg/dL (8-24); CO2, Blood 23.0 mmol/L (21-32); Calcium, Blood 8.1 mg/dL (8.5-10.1); Chloride, Blood 86.0 mmol/L (98-108); Creatinine, Blood 0.42 mg/dL (0.60-1.20); Globulin, Blood 4.3 g/dL (2.2-4.0); Glucose, Blood 91.0 mg/dL (70-99); Potassium, Blood 3.8 mmol/L (3.5-5.5); Sodium, Blood 118.0 mmol/L (136-145); Total Protein, Blood 7.2 g/dL (6.4-8.2)
[2025-01-20 16:26] LABS: Color, Urine Pale Yellow (P-Yellow)
[2025-01-20 16:27] LABS: White Blood Cells, Urine 0-2 /hpf (0-5)
[2025-01-20 18:04] LABS: Osmolality, Serum 263.0 mos/KG (275-300)
[2025-01-20 18:06] LABS: Thyroid Stimulating Hormone 0.485 uIU/mL (0.360-4.800)
[2025-01-20 18:07] LABS: pH Blood Venous 7.50 (7.34-7.37)
[2025-01-20] MEDS ORDERED: OxyCODONE 10/Acetamin 325 TABLET PO ONE (18:10)
[2025-01-20] MEDS ORDERED: FLU VACC TS2025(65UP)/MF59C/PF 45 MCG/0.5 ML SYRINGE IM SCH (19:30)
[2025-01-20] MEDS ORDERED: OxyCODONE 5 mg/Acetamin 325 mg TABLET PO PRN (19:35)
[2025-01-20] MEDS ORDERED: Albuterol 2.5 MG/3 ML VIAL INH PRN (19:35)
[2025-01-20 19:37] LABS: Creatinine, Urine Random 23.4 mg/dL (27.00-270.00); Sodium, Urine, Random 60.0 mmol/L (20-110)
--- NOTE | 2025-01-20 20:35 | NUR ---
ARRIVAL NOTE PATIENT ARRIVES ON ED GURNEY TO PCU 19. PATIENT IS ALERT, NO DISTRESS NOTED, ON ROOM AIR. PATIENT ASSISTED FROM ED GURNEY TO BED 2PA. UNSTEADY GAIT AND WEAKNESS IN BILAT LEGS, WORSE IN L LEG. PATIENT CALM AND COOPERATIVE. REPORTS FEELING COLD. VITALS CHECKED AND STABLE. PATIENT ORIENTED TO ROOM AND PROVIDED WITH CALL LIGHT.
[2025-01-20 20:40] VITALS: BP 160/91
[2025-01-20] MEDS ORDERED: ALBU90OI INH (21:25)
[2025-01-20] MEDS ORDERED: Darbepoetin (Pharmacy Consult) XX PRN (21:25)
--- NOTE | 2025-01-20 21:43 | NUR ---
BLADDER SCAN DONE. 421ML IN BLADDER POST VOID. PATIENT DID VOID 125ML PRIOR. RESULTS TO DR BEAL PER ORDER. T/O TO PLACE JOHNSON CATH, ORDER PSA IN AM, AND FLOMAX 0.4MG PO DAILY. DISCUSSED WITH PATIENT AND EXPLAINED INDICTAION FOR JOHNSON CATH. PATIENT REFUSING AT THIS TIME. STS HE IS " SET" ON NOT HAVING JOHNSON PLACED. 2ND IV STARTED AND STAT LABS SENT UPSTAIRS.
[2025-01-20 22:17] LABS: Sodium, Blood 120.0 mmol/L (136-145); Uric Acid, Blood 3.6 mg/dL (3.5-7.2)
[2025-01-20] MEDS ORDERED: Furosemide 10 MG / ML 2ML Vial IV ONE (22:50)
[2025-01-20] MEDS ORDERED: UREA 15 GM POWD.PACK PO SCH (22:50)
[2025-01-20] MEDS ORDERED: Potassium Chloride 10 Meq Tablet SA PO ONE (22:50)
--- NOTE | 2025-01-20 22:50 | NUR ---
LAB VALUES REPORTED TO DR BEAL AND ORDERS RECEIVED AND PLACED IN [facility].
[2025-01-20 23:53] VITALS: BP 154/88
[2025-01-21 03:44] VITALS: BP 120/76
[2025-01-21 04:41] LABS: Hematocrit 26.4 % (37.0-53.0); Hemoglobin 9.5 g/dL (13.5-17.5)
[2025-01-21 05:06] LABS: Magnesium, Blood 1.6 mg/dL (1.6-2.4); Prostate Specific Antigen 0.072 ng/mL (0.000-4.000)
[2025-01-21 05:10] LABS: Albumin, Blood 2.6 g/dL (3.4-5.0); Anion Gap 9 mmol/L (3-11); Blood Urea Nitrogen 23 mg/dL (8-24); CO2, Blood 27 mmol/L (21-32); Calcium, Blood 8.0 mg/dL (8.5-10.1); Chloride, Blood 86 mmol/L (98-108); Creatinine, Blood 0.50 mg/dL (0.60-1.20); Glucose, Blood 121 mg/dL (70-99); Phosphorus, Blood 3.2 mg/dL (2.5-4.9); Potassium, Blood 3.4 mmol/L (3.5-5.5); Sodium, Blood 119 mmol/L (136-145)
--- NOTE | 2025-01-21 05:24 | NUR ---
MORNING LABS, ASSESSMENT, RECENT VITALS REPORTED TO DR BEAL. ORDERS RECEIVED.
--- NOTE | 2025-01-21 05:57 | NUR ---
SHIFT SUMMARY PATIENT A/OX4. NO ACUTE CHANGES OVERNIGHT. PATIENT REPORTS FEELING BETTER. FLUID RESTRICTION IN PLACE <1000ML/24HRS. STARTED AT MIGHTNIGHT, PATIENT HAS CONSUMED 575ML. PATIENT HAS GOOD APPETITE. WAS AWAKE MOST OF SHIFT WATCHING TV. REFUSED JOHNSON CATH. GOOD URINE OUTPUT. PATIENT IS NOT WANTING TO ADHERE TO FLUID RESTRICTION, EDUCATED ON REASON FOR RESTRICTION. DR BEAL HAS BEEN UPDATED ON ASSESSMENTS AND LABS. ROUNDED THIS MORNING. PLAN OF CARE ONGOING.
[2025-01-21] MEDS ORDERED: Potassium Chloride 10 Meq Tablet SA PO ONE ×3 (06:15→16:00)
[2025-01-21 08:11] VITALS: BP 130/82
--- NOTE | 2025-01-21 08:14 | NUR ---
ASSUMPTION NOTE: THIS RN TO ASSUME CARE OF PATIENT. PATIENT AWAKE AND EATING BREAKFAST. VITAL SIGNS STABLE,DENIED CHEST PAIN/PRESSURE OR FEELING SHORT OF BREATH. PATIENT IS ALERT AND ORIENTED X4. PATIENT MORNING MEDICATIONS WERE ADMINISTERED. JANNET HAS CALL LIGHT WITHIN REACH, BED IN LOWEST LOCKED POSIITON & STATING NOTHING ELSE IS NEEDED AT THIS TIME.
[2025-01-21] MEDS ORDERED: Enoxaparin 40 MG/0.4 ML SYR SC SCH (09:00)
[2025-01-21] MEDS ORDERED: UREA 15 GM POWD.PACK PO SCH (09:00)
--- NOTE | 2025-01-21 10:31 | NUR ---
ROUNDED: MD ROUNDED AND SPOKE WITH PATIENT. PLAN CONITNUES TO DIUREIS SLOWLY, CONTINUE FLUID RESTRICT TO HOPEFULLY CONCENTRATE SODIUM. LAB TO BE DRAWN SHORTLY TO SEE PATIENTS SODIUM AGAIN. PATIENT AWARE IT WILL MOST LIKELY BE A COUPLE MORE DAYS HERE.
[2025-01-21 11:25] LABS: Potassium, Blood 3.3 mmol/L (3.5-5.5); Sodium, Blood 125.0 mmol/L (136-145)
--- NOTE | 2025-01-21 11:48 | NUR ---
CORN BREEDER CALLED: EMIGDIO CALLED THIS RN AND ASKED FOR RESULTS FROM SODIUM DRAW EARLIER. GAVE VERBAL ORDER TO PLACE ANOTHER STAT FOR 2PM AND TO CALL HIM WITH THE RESULTS. GAVE ORDER TO HOLD THE 1300 SODIUM TAB AND TO REPLACE PATIENTS POTASSIUM WITH 20MEQ'S NOW AND ANOTHER 20MEQ'S IN 4 HOURS.
[2025-01-21 12:37] VITALS: BP 139/80
--- NOTE | 2025-01-21 14:42 | NUR ---
NEPHRADHA CALLED: THIS RN CALLED EMIGDIO REGARDING SODIUM RESULTS. GAVE VERBAL ORDER FOR STAT RE DRAW OF SODIUM TO BE DONE AT 1999 AND TO CALL EMIGDIO WITH RESULTS BY 2099.
[2025-01-21 16:58] VITALS: BP 134/96
--- NOTE | 2025-01-21 17:08 | NUR ---
SHIFT SUMMARY: PATIENT IS ALERT AND ORIENTED X4 & COOPERATIVE WITH HIS CARE, IS ABLE TO MAKE NEEDS KNOWN & USES CALL LIGHT APPRORPIRATLEY. SATTING >92% ON ROOM AIR, ON TELE SHOWING SINUS RYTHM TO SINUS TACH 90-110. PATIENT IS ON A 24HR URINE SAMPLE AND IS AWARE WITH EVERYTHING IN THE BATHROOM NEEDED. PATIENT SODIUM CAME UP TODYA TO 125 AND HAS A STAT BLOOD DRAW AT 2000 THAT EMIGDIO WOULD LIKE REPORTED, SEE PREVIOUS NOTE FOR MORE INFORMATION. PATIENT MEDICATED WITH PAIN MEDS [facility] FOR LEFT HIP & KNEE PAIN, WAS GIVEN AN ICE PACK THAT JANNET REPORTED DID HELP A LITTLE BIT WELL. POTASSIUM WAS REPLACED ORALLY TODAY WELL,SEE EMAR FOR MORE INFORMATION. PATIENT AWARE PLAN CONTINUES TO BE TO WORK WITH EMIGDIO AND GETTING HIS SODIUM UP. PATIENT CURRENTLY IN BED, WATCHING TV,CALL LIGHT WITHIN REACH, BED IN LOWEST LOCKED POSITION & STATING NOTHING ELSE IS NEEDED AT THIS TIME.
[2025-01-21 19:42] VITALS: BP 127/77
[2025-01-21 23:36] VITALS: BP 144/97
[2025-01-22 04:02] LABS: BASOPHILS ABSOLUTE AUTO 0.02 K/mm3 (0.00-0.23); BASOPHILS PERCENT AUTO 1 % (0-2); EOSINOPHILS ABSOLUTE AUTO 0.03 K/mm3 (0.00-0.68); EOSINOPHILS PERCENT AUTO 1 % (0-6); Hematocrit 25.7 % (37.0-53.0); Hemoglobin 9.1 g/dL (13.5-17.5); IMMATURE GRAN ABSOLUTE AUTO 0.01 K/mm3 (0.00-0.10); IMMATURE GRAN PERCENT AUTO 0 % (0-1); LYMPHOCYTES ABSOLUTE AUTO 0.68 K/mm3 (0.84-5.20); LYMPHOCYTES PERCENT AUTO 18 % (21-46); MONOCYTES ABSOLUTE AUTO 0.49 K/mm3 (0.16-1.47); MONOCYTES PERCENT AUTO 13 % (4-13); Mean Corpuscular HGB Conc 35.4 g/dL (31.5-36.5); Mean Corpuscular Volume 94 fL (80-100); NEUTROPHILS ABSOLUTE AUTO 2.59 K/mm3 (1.96-9.15); NEUTROPHILS PERCENT AUTO 68 % (41-73); NRBC ABSOLUTE 0.00 K/mm3 (0.00-0.02); NRBC Auto 0.0 /100 WBC (0.0-0.2); Platelet Count 221 K/mm3 (150-400); RDW Coefficient Variation 17.5 % (11.7-14.2); RDW Standard Deviation 59.5 fL (35.1-46.3)
[2025-01-22 04:25] LABS: Alanine Aminotransfer (ALT/SGP 18.0 U/L (12-78); Albumin, Blood 2.6 g/dL (3.4-5.0); Albumin/Globulin Ratio 0.7 (0.8-1.8); Anion Gap 8.0 mmol/L (3-11); Aspartate Aminotrans (AST/SGOT 27.0 U/L (12-37); Bilirubin, Total 0.4 mg/dL (0.1-1.0); Blood Urea Nitrogen 59.0 mg/dL (8-24); CO2, Blood 28.0 mmol/L (21-32); Calcium, Blood 8.0 mg/dL (8.5-10.1); Chloride, Blood 96.0 mmol/L (98-108); Creatinine, Blood 0.57 mg/dL (0.60-1.20); Globulin, Blood 3.7 g/dL (2.2-4.0); Glucose, Blood 142.0 mg/dL (70-99); Potassium, Blood 3.6 mmol/L (3.5-5.5); Sodium, Blood 128.0 mmol/L (136-145); Total Protein, Blood 6.3 g/dL (6.4-8.2)
[2025-01-22 04:28] VITALS: BP 134/63
[2025-01-22 04:52] LABS: Magnesium, Blood 1.8 mg/dL (1.6-2.4); Phosphorus, Blood 2.9 mg/dL (2.5-4.9)
--- NOTE | 2025-01-22 05:45 | NUR ---
ASSUMED CARE OF PT AT 1900. PT AWAKE,ALERT AND ORIENTED X 4, ABLE TO USE ALL LIGHT APPROPRIATELY. NA+ LEVEL AT 1930 WAS 128; NOTIFIED, NO NEW ORDERS RECIEVED. PT CURRENTLY UNDERGOING 24HR URINE COLLECTION. REPEAT NA+ THIS MORNING REMAINED 128; ORDERS IN PLACE TO REDRAW AT 1200 AND NOTIFY WITH RESULTS AT 1300. PT REMAINS ON A 1000ML FLUID RESTRICTION. VSS. BED IN LOWEST POSITION AND CALL LIGHT WITHIN REACH.
--- NOTE | 2025-01-22 07:09 | NUR ---
ASSUMPTION NOTE: THIS RN TO ASSUME CARE OF PAITENT. PAITENT AWAKE AND WATCHING TV, ASKED FOR SOME SNACKS THAT THIS RN BROUGHT IN. DENIED ANY CHEST PAIN/PRESSURE. PATIENT REPORTED SOME PAIN BUT ITS TOLERABLE AND DIDN'T WANT ANY MEDICATIONS FOR IT. PATIENT HAS CALL LIGHT WIHTIN REACH, BED IN LOWEST LOCKED POSITION
[2025-01-22 07:37] VITALS: BP 145/86
--- NOTE | 2025-01-22 07:48 | NUR ---
EMIGDIO ROUNDED: EMIGDIO ROUNDED AND PATIENT AWARE WE WILL CONTINUE WITH FLUID RESTRICTION OF 1 LITER, REPEAT SODIUM LAB THIS AFTERNOON AND FROM HIS STAND POINT PATIENT MAY BE ABLE TO GO TOMORROW BUT THAT WILL BE UP TO PRIRY PHYSICIAN.
--- NOTE | 2025-01-22 08:31 | NUR ---
ROUNDED: BONDS ROUNDED AND PATIENT AWARE HE WILL STAY THROUGHOUT TONIGHT POSSIBLE DISCHARGE TOMORROW. IS NOW MEDICAL STATUS AND WE WILL CONTIUE THE FLUID RESTRICTION AND TO INCREASE THE SODIUM ONE MORE NIGHT. PATIENT AGREEABLE TO STAYING
--- NOTE | 2025-01-22 11:03 | NUR ---
MD CONTACTED: THIS RN CONTACTED MD REGAREDING PATIENT EXPRESSING HE WOULD LIKE TO GO HOME HE IS VERY ANGRY WITH HIS FLUID RESTRICTION. MD TO PLACE DISCHARGE ORDERS.
[2025-01-22 11:38] LABS: Protein, Urine Quantitative 6.0 mg/dL (0.0-11.9)
--- NOTE | 2025-01-22 11:55 | NUR ---
DISCHARGE NOTE: PATEINT IS ALERT AND ORIENTED X4 & COOPERATIVE WITH HIS CARE,IS ABLE TO MAKE NEEDS KNOWN. NOTIFIED THIS RN THAT HE WANTED TO GO HOME AND WAS ABLE TO GET A RIDE HOME. 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 PATIENT AWARE TO FOLLOW UP WITH PRIMARY AND OUTPATIENT UPON RELEASE TO CALL TOMTORYROW TO SCHEDULED APPOINTMENT. PATIENT WAS TAKEN OUT VIA WHEELCHAIR TO HIS RIDE.
[2025-01-25 13:02] LABS: CORTISOL,U FREE - RATIO TO CRT 50.44 ug/g CRT; CORTISOL,URN FREE - PER VOLUME 8.07 ug/L; CREATININE,URINE - PER VOLUME 16 mg/dL; HOURS COLLECTED Random hr
== END 2025-01-22 13:59 | disposition home or self-care (01) | DRG 641 ==
LOC: ER 14:28 → PCU 18:19
PROVIDERS: Emergency Medicine; Family Medicine; Internal Medicine Nephrology; Student in an Organized Health Care Education/Training Program; ADMIT Student in an Organized Health Care Education/Training Program
DX: E87.1 Hypo-osmolality and hyponatremia (principal); J44.9 Chronic obstructive pulmonary disease, unspecified; F10.10 Alcohol abuse, uncomplicated; D50.9 Iron deficiency anemia, unspecified; R31.29 Other microscopic hematuria; D63.1 Anemia in chronic kidney disease; N18.1 Chronic kidney disease, stage 1; Z96.642 Presence of left artificial hip joint; Z91.048 Other nonmedicinal substance allergy status; Z79.899 Other long term (current) drug therapy; Z79.51 Long term (current) use of inhaled steroids; Z79.891 Long term (current) use of opiate analgesic; Z88.5 Allergy status to narcotic agent; Z86.69 Personal history of other diseases of the nervous system and sense organs; Z59.89 Other problems related to housing and economic circumstances
CPT/HCPCS: 36415; 80053; 80069; 81001; 82530; 82533; 82570; 82803; 83690; 83735; 83880; 83930; 83935; 84100; 84132; 84156; 84295; 84300; 84443; 84484; 84550; 85014; 85018; 85025; 93005; 93010; 93306; 99283-25; 99285-25; A9270; G0103; J1650; J1938; J7030; J7120

== ENCOUNTER → 2025-02-14 | Outpatient (CLI) | payer MEDICARE | END | disposition home or self-care (01) | LOC: LAB SHORT 15:54 → LAB 15:54 | DX: N39.0 Urinary tract infection, site not specified (principal) | CPT/HCPCS: 87086 ==

== ENCOUNTER → 2025-02-22 | Outpatient (CLI) | payer MEDICARE ==
[2025-02-22 20:54] LABS: Protein, Urine Quantitative 6.1 mg/dL (0.0-11.9)
[2025-02-22 21:06] LABS: Microalbumin, Urine Quant. <5.000 mg/L (0.000-20.000)
== END ==
LOC: LAB 13:22 → LAB SHORT 13:22 → LAB FUT 02-20 14:30
PROVIDERS: Internal Medicine Nephrology
DX: N18.2 Chronic kidney disease, stage 2 (mild) (principal); D63.1 Anemia in chronic kidney disease; N25.81 Secondary hyperparathyroidism of renal origin; E55.9 Vitamin D deficiency, unspecified; E29.1 Testicular hypofunction; R76.9 Abnormal immunological finding in serum, unspecified; R94.5 Abnormal results of liver function studies; R94.6 Abnormal results of thyroid function studies; R57.8 Other shock; D52.8 Other folate deficiency anemias; N40.1 Benign prostatic hyperplasia with lower urinary tract symptoms
CPT/HCPCS: 81050; 82043; 82570; 84156